=== PATIENT | female | born 1950 | race Caucasian/White ===

== ENCOUNTER → 2018-12-20 | Outpatient (CLI) | payer MEDICARE ==
[~2018-12-20] MED LIST: ALLOPURINOL100 MG PO; ANASTROZOLE1 MG PO; DILTIAZEM ER180 M1 PO; GABAPENTIN100 MG PO; INDOMETHACIN50 MG PO; LEVOTHYROXINE112 MCG PO; LOSARTAN POTASS25 MG PO; NORCO 7.5-3251 EACH PO; TOPAMAX25 MG PO; ZOLPIDEM TARTRA10 MG PO
--- NOTE | 2018-12-20 15:47 | Diagnostic Imaging Report ---
HISTORY : Abdominal pain COMPARISON : None COMMENT : Complete ultrasound examination of the abdomen was performed. The liver is normal in size and homogeneous in echo-texture without evidence of a focal mass. The gallbladder contains multiple shadowing echogenic gallstones. The gallbladder wall is thickened up to 7 mm. The biliary tract is within normal limits with the common bile duct measuring 3 mm in maximum diameter. The increase is secured by bowel gas. The spleen is normal in size and echo-texture measuring 10.7 cm. The right kidney measures 9.2 cm and the left kidney 10.6 cm in maximum size. There is no evidence of cysts, masses, stones or hydronephrosis. The portal vein measures to a maximum of 0.8 cm in diameter. There is no ascites or pleural effusion. The visualized inferior vena cava, hepatic veins and abdominal aorta are within normal limits. IMPRESSION : Cholelithiasis with gallbladder wall thickening. While the gallbladder is not distended and there is no pericholecystic fluid is findings can be seen in acute cholecystitis. Further evaluation can be performed with HIDA scan if clinically indicated. Signed by: Félix Thomason MD on 12/20/2018 3:43 PM
== END ==
LOC: US 14:13
PROVIDERS: ATTEND Family Medicine
DX: R10.11 Right upper quadrant pain (principal)
CPT/HCPCS: 76700

== ENCOUNTER 2018-12-22 07:33 | Observation (INO) | payer MEDICARE ==
[~2018-12-22] VITALS: Ht 162.6 cm; Wt 79.4 kg
--- OUTSIDE RECORDS SUMMARY | 2018-12-22 07:36 | XMS REPORT | Summary of Care ---
Author Author [facility] Organization [facility] Address Unknown Phone Unavailable Encounter JESSICA Bermeo(ISELA) [id number] Date(s): 12/03/15 - 12/08/15 [facility] [address] [place] [address]- [phone] Discharge Disposition: Home or Self Care Attending Physician: Dorian Stevens MD Admitting Physician: Dorian Stevens MD Vital Signs 1 2 3 Most recent to oldest [Reference Range]: 162.56 cm (12/03/15 7:59 PM) 162.56 cm (12/03/15 3:27 PM) Height 98.3 DegF (12/08/15 8:33 AM) 98.1 DegF (12/08/15 4:04 AM) 98.1 DegF (12/08/15 12:00 AM) Temperature Oral [96.4-99.1 DegF] 124/80 mmHg (12/08/15 8:33 AM) 120/69 mmHg (12/08/15 4:04 AM) 101/63 mmHg (12/08/15 12:00 AM) Blood Pressure [90-140/60-90 mmHg] 14 BRMIN (12/08/15 8:33 AM) 16 BRMIN (12/08/15 4:04 AM) 16 BRMIN (12/08/15 12:00 AM) Respiratory Rate [14-20 BRMIN] 71 bpm (12/08/15 8:33 AM) 59 bpm *LOW* (12/08/15 4:04 AM) 54 bpm *LOW* (12/08/15 12:00 AM) Peripheral Pulse Rate [60-100 bpm] 79.091 kg (12/03/15 7:59 PM) 75 kg (12/03/15 3:27 PM) Weight 29.93 m2 (12/03/15 7:59 PM) 28.38 m2 (12/03/15 3:27 PM) Body Mass Index Problem List Condition Effective Dates Status Health Status Informant Gout(Confirmed) Active Hypertension(Confirm Active ed) Hypothyroid(Confirme Active d) Allergies, Adverse Reactions, Alerts Substance Reaction Severity Status NKDA Active Medications Please bring pt's own atenolol/chlorthalidone to pharmacy Please bring pt's own atenolol/chlorthalidone to pharmacy, ATTN:RN, Drug form: MISC, Route: MISC, QSHIFT, 12/05/15 0:00:00 CDT, Duration: 30 day, Stop date: 16:00:00 CDT Start Date: 12/05/15 Stop Date: 12/05/15 Status: Discontinued acetaminophen 650 mg, 2 tab, Route: PO, Drug form: TAB, Q4H, Dosing Weight 79.091, kg, PRN Angel n 1-3/Temp > 100.4 F, Start date: 12/05/15 11:48:00 CDT, Duration: 30 day, Stop date: 01/04/16 11:47:00 CDT Notes: Do not exceed 4 gm/day. (Same as: Tylenol) Start Date: 12/05/15 Stop Date: 12/06/15 Status: Discontinued acetaminophen 650 mg, 2 tab, Route: PO, Drug form: TAB, Q4H, Dosing Weight 75, kg, PRN Pain 1- 3/Temp > 100.4 F, Start date: 12/03/15 19:48:00 CDT, Duration: 30 day, Stop date: 01/02/16 19:47:00 CDT Notes: Do not exceed 4 gm/day. (Same as: Tylenol) Start Date: 12/03/15 Stop Date: 12/03/15 Status: Discontinued acetaminophen 650 mg, 2 tab, Route: PO, Drug form: TAB, Q4H, Dosing Weight 75, kg, PRN Pain 1- 3/Temp > 100.4 F, Start date: 12/03/15 21:54:00 CDT, Duration: 30 day, Stop date: 01/02/16 21:53:00 CDT Notes: Do not exceed 4 gm/day. (Same as: Tylenol) Start Date: 12/03/15 Stop Date: 12/08/15 Status: Discontinued acetaminophen-codeine 300 mg-30 mg oral tablet 1 tab, Route: PO, Drug Form: TAB, Dosing Weight 79.091, kg, Q4H, PRN Pain Score 4-6, Start date: 12/06/15 10:53:00 CDT, Duration: 30 day, Stop date: 01/05/16 10 :52:00 CDT Notes: Do not exceed 4gm/day of acetaminophen. (Same as: Tylenol with Codeine # 3) Start Date: 12/06/15 Stop Date: 12/08/15 Status: Discontinued acetaminophen-codeine 300 mg-30 mg oral tablet 2 tab, Route: PO, Drug Form: TAB, Dosing Weight 79.091, kg, Q4H, PRN Pain Score 7-10, Start date: 12/06/15 10:53:00 CDT, Duration: 30 day, Stop date: 01/05/16 1 0:52:00 CDT Notes: Do not exceed 4gm/day of acetaminophen. (Same as: Tylenol with Codeine # 3) Start Date: 12/06/15 Stop Date: 12/08/15 Status: Discontinued acetaminophen-codeine 300 mg-30 mg oral tablet 1 tab, PO, Q4H, PRN Pain Score 4-6, X 14 day, # 84 tab, 0 Refill(s) Start Date: 12/08/15 Stop Date: 12/08/15 Status: Deleted acetaminophen-hydrocodone 325 mg-10 mg oral tablet 1 tab, Route: PO, Drug Form: TAB, Dosing Weight 79.091, kg, Q4H, PRN Pain Score 4-6, Start date: 12/05/15 11:48:00 CDT, Duration: 30 day, Stop date: 01/04/16 11 :47:00 CDT Notes: Do not exceed 4gm/day of acetaminophen. (Same as: [place] 325/10) Start Date: 12/05/15 Stop Date: 12/06/15 Status: Discontinued Al hydroxide/Mg hydroxide/simethicone 200 mg-200 mg-20 mg/5 mL oral suspension 30 ml, Route: PO, Drug Form: SUSP, Dosing Weight 79.091, kg, Q4H, PRN Indigestio n, Start date: 12/05/15 11:48:00 CDT, Duration: 30 day, Stop date: 01/04/16 11:4 7:00 CDT Notes: (aluminum hydroxide-magnesium hyd-simethicone [phone]/5ml 30 ml ud S US) Start Date: 12/05/15 Stop Date: 12/08/15 Status: Discontinued allopurinol 100 mg, 1 tab, Route: PO, Drug form: TAB, Daily, Dosing Weight 79.091, kg, Start date: 12/07/15 9:00:00 CDT, Duration: 30 day, Stop date: 01/05/16 9:00:00 CDT Notes: (Same as: Zyloprim) Start Date: 12/07/15 Stop Date: 12/08/15 Status: Discontinued allopurinol 100 mg oral tablet 100 mg=1 tab, PO, Daily, 0 Refill(s) Start Date: 12/06/15 Status: Ordered Ambien 5 mg, 1 tab, Route: PO, Drug form: TAB, Bedtime, PRN Sleep, Start date: 12/04/15 18:21:00 CDT, Duration: 30 day, Stop date: 01/03/16 18:20:00 CDT Notes: (Same As: Ambien) Start Date: 12/04/15 Stop Date: 12/08/15 Status: Discontinued Ancef 2 gm, 100 mL, Route: IVPB, Drug form: INJ, ONCE, Dosing Weight 79.091, kg, Start date: 12/05/15 13:51:00 CDT, Duration: 1 doses or times, Stop date: 12/05/15 13 :51:00 CDT, Surgical Prophylaxis Only; For patients < 120 kg Notes: Same as: Ancef Start Date: 12/05/15 Stop Date: 12/05/15 Status: Completed ANES fentaNYL 25 microgram, Route: IVP, Q5Min, Dosing Weight 79.091, kg, PRN Pain Score 4-6, S tart date: 12/05/15 12:02:00 CDT, Duration: 4 doses or times, Stop date: Limited # of times Start Date: 12/05/15 Stop Date: 12/05/15 Status: Completed ANES flumazenil 0.2 mg, Route: IVP, PRN, Dosing Weight 79.091, kg, PRN Benzodiazepine Reversal, Initial dose, Start date: 12/05/15 12:02:00 CDT, Duration: 30 day, Stop date: 12:01:00 CDT Start Date: 12/05/15 Stop Date: 12/05/15 Status: Discontinued ANES labetalol 10 mg, Route: IVP, Q5Min, Dosing Weight 79.091, kg, PRN Elevated BP, Start date: 12/05/15 12:02:00 CDT, Duration: 5 doses or times, Stop date: Limited # of times Start Date: 12/05/15 Stop Date: 12/05/15 Status: Discontinued ANES morphine Sulfate 2 mg, Route: IVP, Q5Min, Dosing Weight 79.091, kg, PRN Pain Score 4-6, Start niels e: 12/05/15 12:02:00 CDT, Duration: 5 doses or times, Stop date: Limited # of ti mes Start Date: 12/05/15 Stop Date: 12/05/15 Status: Discontinued ANES naloxone 0.4 mg, Route: IVP, Q2MIN, Dosing Weight 79.091, kg, PRN Narcotic Reversal, Star t date: 12/05/15 12:02:00 CDT, Duration: 8 doses or times, Stop date: Limited # of times Start Date: 12/05/15 Stop Date: 12/05/15 Status: Discontinued ANES ondansetron 4 mg, Route: IVP, ONCE, Dosing Weight 79.091, kg, PRN Nausea & Vomiting, Start date: 12/05/15 12:02:00 CDT Start Date: 12/05/15 Stop Date: 12/05/15 Status: Discontinued Atenol/Chlor Atenol/Chlor, 100-25mg Tab, Drug form: TAB, Route: PO, Daily, 12/05/15 9:00:00 C DT, Duration: 30 day, Stop date: 01/03/16 9:00:00 CDT Start Date: 12/05/15 Stop Date: 12/04/15 Status: Deleted atenolol-chlorthalidone 100 mg-25 mg oral tablet 1 tab, Route: PO, Drug Form: TAB, Daily, Start date: 12/05/15 13:30:00 CDT, Dura tion: 30 day, Stop date: 01/03/16 13:30:00 CDT Notes: Non-Formulary Drug (Same As: Atenolol-Chlorthal,Tenoretic 100-25) Start Date: 12/05/15 Stop Date: 12/08/15 Status: Discontinued benazepril 40 mg, PO, Daily, Take one tablet by mouth daily., 0 Refill(s) Start Date: 12/04/15 Status: Ordered benazepril 40 mg, Route: PO, Daily, Dosing Weight 79.091, kg, Start date: 12/05/15 9:00:00 CDT, Duration: 30 day, Stop date: 01/03/16 9:00:00 CDT Start Date: 12/05/15 Stop Date: 12/04/15 Status: Deleted Cardizem CD 120 mg, 1 cap, Route: PO, Drug form: ERCAP, Daily, Start date: 12/05/15 9:00:00 CDT, Duration: 30 day, Stop date: 01/03/16 9:00:00 CDT Notes: (Same as: Cardizem CD) Do Not Crush Before meals. Start Date: 12/05/15 Stop Date: 12/08/15 Status: Discontinued ceFAZolin (ANES) Route: IV, Drug form: INJ, ONCE, Stop date: 12/05/15 11:38:00 CDT Start Date: 12/05/15 Stop Date: 12/05/15 Status: Completed ceFAZolin (SCIP) 1 gm, 100 mL, Route: IVPB, Drug form: INJ, [id number], Dosing Weight 79.091, kg, Sta rt date: 12/05/15 19:00:00 CDT, Duration: 1 doses or times, Stop date: 12/05/15 19:00:00 CDT Start Date: 12/05/15 Stop Date: 12/05/15 Status: Completed clindamycin (SCIP) 600 mg, 50 mL, Route: IVPB, Drug form: INJ, Q8H, Dosing Weight 79.091, kg, Start date: 12/05/15 16:00:00 CDT, Duration: 1 doses or times, Stop date: 12/05/15 16 :00:00 CDT Start Date: 12/05/15 Stop Date: 12/05/15 Status: Completed colchicine 1.2 mg, 2 tab, Route: PO, Drug form: TAB, ONCE, Dosing Weight 79.091, kg, Start date: 12/06/15 10:51:00 CDT, Stop date: 12/06/15 10:51:00 CDT Start Date: 12/06/15 Stop Date: 12/06/15 Status: Completed colchicine 0.6 mg, Route: PO, Drug form: TAB, ONCE, Dosing Weight 79.091, kg, Start date: 0 12/06/15 11:51:00 CDT, Stop date: 12/06/15 11:51:00 CDT Start Date: 12/06/15 Stop Date: 12/06/15 Status: Canceled Diltiaz ER (XR) Diltiaz ER (XR), 120/24 CAP, Drug form: CAP, Route: PO, Daily, 12/05/15 9:00:00 CDT, Duration: 30 day, Stop date: 01/03/16 9:00:00 CDT Start Date: 12/05/15 Stop Date: 12/04/15 Status: Deleted diphenhydrAMINE 12.5 mg, 0.5 tab, Route: PO, Drug form: TAB, Q6H, Dosing Weight 79.091, kg, PRN Itching, Start date: 12/05/15 11:48:00 CDT, Duration: 30 day, Stop date: 6 11:47:00 CDT Start Date: 12/05/15 Stop Date: 12/08/15 Status: Discontinued docusate sodium 100 mg oral capsule 100 mg, 1 cap, Route: PO, Drug form: CAP, BID, Dosing Weight 79.091, kg, Start d ate: 12/05/15 17:00:00 CDT, Duration: 30 day, Stop date: 01/04/16 9:00:00 CDT Notes: (Same as: Colace) (Do Not Crush) Start Date: 12/05/15 Stop Date: 12/08/15 Status: Discontinued Dulcolax Laxative 5 mg, 1 tab, Route: PO, Drug form: ECTAB, Q24H, Dosing Weight 79.091, kg, PRN Co nstipation, Start date: 12/05/15 11:48:00 CDT, Duration: 30 day, Stop date: 07/16 11:47:00 CDT Notes: (Same As: Dulcolax, Correctol) (Do Not Crush) "Do Not Crush" Start Date: 12/05/15 Stop Date: 12/08/15 Status: Discontinued fentaNYL (ANES) Route: IV, Drug form: INJ, ONCE, Stop date: 12/05/15 11:43:00 CDT Start Date: 12/05/15 Stop Date: 12/05/15 Status: Completed glycopyrrolate (ANES) Route: IV, Drug form: INJ, ONCE, Stop date: 12/05/15 12:02:00 CDT Start Date: 12/05/15 Stop Date: 12/05/15 Status: Completed hydromorphone 0.3 mg, 0.3 mL, Route: IVP, Drug form: INJ, Q3H, Dosing Weight 79.091, kg, PRN P ain Score 4-6, Start date: 12/05/15 11:48:00 CDT, Duration: 30 day, Stop date: 11:47:00 CDT Start Date: 12/05/15 Stop Date: 12/06/15 Status: Discontinued indomethacin 50 mg oral capsule 50 mg=1 cap, PO, Q4H, Pt. Does not take medication as prescribed, she takes med icaion PRN., 0 Refill(s) Start Date: 12/06/15 Status: Ordered Lactated Ringers 1,000 mL 1,000 mL, Rate: 75 ml/hr, Infuse over: 13.3 hr, Route: IV, Dosing Weight 79.091 kg, Total Volume: 1,000, Start date: 12/05/15 11:48:00 CDT, Duration: 30 day, St op date: 01/04/16 11:47:00 CDT Start Date: 12/05/15 Stop Date: 12/07/15 Status: Discontinued levothyroxine 125 microgram, 1 tab, Route: PO, Drug form: TAB, [id number], Dosing Weight 79.091, k g, Start date: 12/05/15 6:30:00 CDT, Duration: 30 day, Stop date: 01/03/16 6:30: 00 CDT Notes: Take 1 hour before or 2 hours after meal; Enteral feeds may interefere wi th the absorption of this medication. (Same as:Levothroid) Start Date: 12/05/15 Stop Date: 12/08/15 Status: Discontinued levothyroxine 125 microgram, PO, Daily, take one tablet by mouth once daily in the morning on an empty stomach., 0 Refill(s) Start Date: 12/04/15 Status: Ordered levothyroxine Daily, 0 Refill(s) Start Date: 12/04/15 Stop Date: 12/08/15 Status: Discontinued lidocaine (ANES) Route: IV, Drug form: INJ, ONCE, Stop date: 12/05/15 11:18:00 CDT Start Date: 12/05/15 Stop Date: 12/05/15 Status: Completed Lovenox 40 mg, 0.4 mL, Route: SUB-Q, Drug form: INJ, [id number], Dosing Weight 79.091, kg, Start date: 12/06/15 9:00:00 CDT, Duration: 30 day, Stop date: 01/04/16 9:00:00 CDT Notes: (Same as: Lovenox) Start Date: 12/06/15 Stop Date: 12/08/15 Status: Discontinued LR 1000 mL INJ (ANES) Route: IV, Total Volume: 1,000, Start date: 12/05/15 10:44:00 CDT, Stop date: 11:44:00 CDT Start Date: 12/05/15 Stop Date: 12/05/15 Status: Completed midazolam (ANES) Route: IV, Drug form: SOLN, ONCE, Stop date: 12/05/15 11:18:00 CDT Start Date: 12/05/15 Stop Date: 12/05/15 Status: Completed morphine Sulfate 2 mg, 1 mL, Route: IVP, Drug form: INJ, ONCE, Dosing Weight 79.091, kg, Start da te: 12/03/15 22:30:00 CDT, Stop date: 12/03/15 22:30:00 CDT Notes: (Same as:MORPhine Sulfate) Start Date: 12/03/15 Stop Date: 12/03/15 Status: Completed morphine Sulfate 4 mg, Route: IVP, ONCE, Dosing Weight 75, kg, Priority: STAT, Start date: 17:51:00 CDT, Stop date: 12/03/15 17:51:00 CDT Start Date: 12/03/15 Stop Date: 12/03/15 Status: Completed morphine Sulfate 4 mg, 2 mL, Route: IVP, Drug form: INJ, ONCE, Dosing Weight 75, kg, Priority: ST AT, Start date: 12/03/15 15:47:00 CDT, Stop date: 12/03/15 15:47:00 CDT Notes: (Same as:MORPhine Sulfate) Start Date: 12/03/15 Stop Date: 12/03/15 Status: Completed morphine Sulfate 2 mg, 1 mL, Route: IVP, Drug form: INJ, Q4H, Dosing Weight 75, kg, PRN Pain Scor e 7-10, Start date: 12/03/15 19:48:00 CDT, Duration: 30 day, Stop date: 01/02/16 19:47:00 CDT Notes: (Same as:MORPhine Sulfate) Start Date: 12/03/15 Stop Date: 12/03/15 Status: Discontinued morphine Sulfate 2 mg, 1 mL, Route: IVP, Drug form: INJ, Q4H, Dosing Weight 75, kg, PRN Pain Scor e 7-10, Start date: 12/03/15 21:54:00 CDT, Duration: 30 day, Stop date: 01/02/16 21:53:00 CDT Notes: (Same as:MORPhine Sulfate) Start Date: 12/03/15 Stop Date: 12/08/15 Status: Discontinued neostigmine (ANES) Route: IV, Drug form: INJ, ONCE, Stop date: 12/05/15 12:02:00 CDT Start Date: 12/05/15 Stop Date: 12/05/15 Status: Completed Non-Formulary Home Medication Diltiaz ER (XR) 120/24 CAP Take one capsule by mouth once daily, Refill(s) 0 Start Date: 12/04/15 Status: Ordered Non-Formulary Home Medication Atenol/Chlor 100-25 mg Tab, take one tablet by mouth once daily., Refill(s) 0 Start Date: 12/04/15 Stop Date: 12/08/15 Status: Discontinued [place] 10/325 oral tablet See Instructions, PRN Pain Score 7-10, 1 tab PO Q4-6H as needed, # 60 tab, 0 Ref ill(s), given to patient Start Date: 12/08/15 Stop Date: 12/29/15 Status: Ordered NS (Bolus) IV 1,000 mL, 1,000 ml/hr, Infuse Over: 1 hr, Route: IV, 1,000, Drug form: INJ, ONCE , Priority: STAT, Dosing Weight 75 kg, Start date: 12/03/15 15:48:00 CDT, Durati on: 1 doses or times, Stop date: 12/03/15 15:48:00 CDT Start Date: 12/03/15 Stop Date: 12/03/15 Status: Completed ondansetron 4 mg, 2 mL, Route: IVP, Drug form: INJ, Q6H, Dosing Weight 75, kg, PRN Nausea & Vomiting, Start date: 12/03/15 21:54:00 CDT, Duration: 30 day, Stop date: 01/01 21:53:00 CDT Notes: (Same as: Miriam) MEDICATION WASTE Product Size: 4 mgProduct Was luigi: ___ mg Start Date: 12/03/15 Stop Date: 12/08/15 Status: Discontinued ondansetron 4 mg, 2 mL, Route: IVP, Drug form: INJ, Q6H, Dosing Weight 75, kg, PRN Nausea & Vomiting, Start date: 12/03/15 19:48:00 CDT, Duration: 30 day, Stop date: 01/01 19:47:00 CDT Notes: (Same as: Miriam) MEDICATION WASTE Product Size: 4 mgProduct Was luigi: ___ mg Start Date: 12/03/15 Stop Date: 12/03/15 Status: Discontinued ondansetron (ANES) Route: IV, Drug form: INJ, ONCE, Stop date: 12/05/15 11:28:00 CDT Start Date: 12/05/15 Stop Date: 12/05/15 Status: Completed pantoprazole 40 mg, 1 tab, Route: PO, Drug form: ECTAB, Daily, Dosing Weight 79.091, kg, Star t date: 12/06/15 9:00:00 CDT, Duration: 30 day, Stop date: 01/04/16 9:00:00 CDT Notes: Tablet should not be chewed or crushed.(Same as: Protonix) Start Date: 12/06/15 Stop Date: 12/08/15 Status: Discontinued Physical Therapy See Instructions, MISC, ONCALL, Evaluate and Treat 2-3 times per week for 4-6 we eks, # 1 ea, 0 Refill(s) Start Date: 12/07/15 Status: Ordered pneumococcal 13-valent vaccine 0.5 mL, Route: IM, Drug Form: INJ, Daily, Start date: 12/04/15 9:00:00 CDT, Dura tion: 1 doses or times, Stop date: 12/04/15 9:00:00 CDT Notes: Lightly roll vial (DO NOT SHAKE) before administration. (Same as: Prevna r 13) Start Date: 12/04/15 Stop Date: 12/04/15 Status: Completed Prinivil 40 mg, 2 tab, Route: PO, Drug form: TAB, Daily, Start date: 12/05/15 9:00:00 CDT , Duration: 30 day, Stop date: 01/03/16 9:00:00 CDT Notes: (Same as: Prinivil, Zestril) Start Date: 12/05/15 Stop Date: 12/08/15 Status: Discontinued propofol (ANES) Route: IV, Drug form: INJ, ONCE, Stop date: 12/05/15 11:18:00 CDT Start Date: 12/05/15 Stop Date: 12/05/15 Status: Completed rocuronium (ANES) Route: IV, Drug form: INJ, ONCE, Stop date: 12/05/15 11:43:00 CDT Start Date: 12/05/15 Stop Date: 12/05/15 Status: Completed Saline Flush 0.9% 10 ml, Route: IVP, Drug Form: INJ, Dosing Weight 75, kg, PRN, PRN Line Flush, St art date: 12/03/15 19:48:00 CDT, Duration: 30 day, Stop date: 01/02/16 19:47:00 CDT Notes: (Same as: BD Posiflush) Start Date: 12/03/15 Stop Date: 12/03/15 Status: Discontinued Saline Flush 0.9% 10 ml, Route: IVP, Drug Form: INJ, Dosing Weight 75, kg, PRN, PRN Line Flush, St art date: 12/03/15 21:55:00 CDT, Duration: 30 day, Stop date: 01/02/16 21:54:00 CDT Notes: (Same as: BD Posiflush) Start Date: 12/03/15 Stop Date: 12/08/15 Status: Discontinued sodium chloride 0.9% 1000 ml INJ 1,000 mL 1,000 mL, Rate: 100 ml/hr, Infuse over: 10 hr, Route: IV, Dosing Weight 75 kg, T otal Volume: 1,000, Start date: 12/03/15 19:48:00 CDT, Duration: 30 day, Stop da te: 01/02/16 19:47:00 CDT Start Date: 12/03/15 Stop Date: 12/03/15 Status: Discontinued sodium chloride 0.9% 1000 ml INJ 1,000 mL 1,000 mL, Rate: 100 ml/hr, Infuse over: 10 hr, Route: IV, Dosing Weight 79.091 k g, Total Volume: 1,000, Start date: 12/03/15 21:54:00 CDT, Duration: 30 day, Sto p date: 01/02/16 21:53:00 CDT Start Date: 12/03/15 Stop Date: 12/07/15 Status: Discontinued topiramate 25 mg, 1 tab, Route: PO, Drug form: TAB, BID, Dosing Weight 79.091, kg, Start da te: 12/05/15 9:00:00 CDT, Duration: 30 day, Stop date: 01/03/16 17:00:00 CDT Notes: (Same As: Topamax)"Do Not Crush" Start Date: 12/05/15 Stop Date: 12/08/15 Status: Discontinued topiramate PO, 0 Refill(s) Start Date: 12/04/15 Stop Date: 12/08/15 Status: Discontinued topiramate 25 mg oral tablet 25 mg=1 tab, PO, BID, 0 Refill(s) Start Date: 12/04/15 Status: Ordered Zofran 4 mg, 2 mL, Route: IVP, Drug form: INJ, ONCE, Dosing Weight 75, kg, Priority: ST AT, Start date: 12/03/15 15:47:00 CDT, Stop date: 12/03/15 15:47:00 CDT Notes: (Same as: Zofran) MEDICATION WASTE Product Size: 4 mgProduct Was luigi: ___ mg Start Date: 12/03/15 Stop Date: 12/03/15 Status: Completed zolpidem 10 mg, Route: PO, Drug form: TAB, Bedtime, Dosing Weight 79.091, kg, PRN Sleep, Start date: 12/04/15 17:52:00 CDT, Duration: 30 day, Stop date: 01/03/16 17:51:0 0 CDT Start Date: 12/04/15 Stop Date: 12/04/15 Status: Deleted zolpidem 10 mg oral tablet 10 mg=1 tab, PO, Bedtime, PRN as needed for sleep, 0 Refill(s) Start Date: 12/04/15 Status: Ordered Results BLOOD BANK RESULTS 1 2 3 Most recent to oldest [Reference Range]: A POS *Unknown* (12/05/15 1:43 PM) ABO/Rh Negative (12/05/15 1:43 PM) Antibody Scrn ELECTROLYTES 1 2 3 Most recent to oldest [Reference Range]: 138 mEq/L (12/08/15 3:15 AM) 138 mEq/L (12/07/15 5:16 AM) 135 mEq/L (12/06/15 6:19 AM) Sodium Lvl [135-145 mEq/L] 3.6 mEq/L (12/08/15 3:15 AM) 3.3 mEq/L *LOW* (12/07/15 5:16 AM) 3.6 mEq/L (12/06/15 6:19 AM) Potassium Lvl [3.5-5.1 mEq/L] 101 mEq/L (12/08/15 3:15 AM) 101 mEq/L (12/07/15 5:16 AM) 101 mEq/L (12/06/15 6:19 AM) Chloride Lvl [95-109 mEq/L] 29 mEq/L (12/08/15 3:15 AM) 28 mEq/L (12/07/15:16 AM) 25 mEq/L (12/06/15 6:19 AM) CO2 [24-32 mEq/L] 11.6 mEq/L (12/08/15 3:15 AM) 12.3 mEq/L (12/07/15:16 AM) 12.6 mEq/L (12/06/15:19 AM) AGAP [10.0-20.0 mEq/L] CHEM PANEL 1 2 3 Most recent to oldest [Reference Range]: 1.06 mg/dL (12/08/15 3:15 AM) 1.10 mg/dL (12/07/15:16 AM) 1.02 mg/dL (12/06/15:19 AM) Creatinine Lvl [0.50-1.40 mg/dL] 55 mL/min/1.73m2 1 *NA* (12/08/15 3:15 AM) 53 mL/min/1.73m2 2 *NA* (12/07/15:16 AM) 58 mL/min/1.73m2 3 *NA* (12/06/15:19 AM) eGFR 16 mg/dL (12/08/15 3:15 AM) 15 mg/dL (12/07/15:16 AM) 12 mg/dL (12/06/15 6:19 AM) BUN [7-22 mg/dL] 15 (12/08/15 3:15 AM) 14 (12/07/15:16 AM) 12 (12/06/15 6:19 AM) B/C Ratio [6-25] 91 mg/dL (12/08/15 3:15 AM) 99 mg/dL (12/07/15:16 AM) 97 mg/dL (12/06/15 6:19 AM) Glucose Lvl [70-99 mg/dL] 5.6 mg/dL (12/06/15 6:19 AM) Uric Acid [2.5-7.0 mg/dL] 6.4 g/dL (12/08/15 3:15 AM) 6.0 g/dL *LOW* (12/07/15 5:16 AM) 6.2 g/dL *LOW* (12/06/15 6:19 AM) Total Protein [6.4-8.4 g/dL] 2.4 g/dL *LOW* (12/08/15 3:15 AM) 2.4 g/dL *LOW* (12/07/15:16 AM) 2.6 g/dL *LOW* (12/06/15 6:19 AM) Albumin Lvl [3.5-5.0 g/dL] 4.0 g/dL (12/08/15 3:15 AM) 3.6 g/dL (12/07/15 5:16 AM) 3.6 g/dL (12/06/15 6:19 AM) Globulin [2.7-4.2 g/dL] 0.6 *LOW* (12/08/15 3:15 AM) 0.7 (12/07/15 5:16 AM) 0.7 (12/06/15 6:19 AM) A/G Ratio [0.7-1.6] 8.1 mg/dL *LOW* (12/08/15 3:15 AM) 8.0 mg/dL *LOW* (12/07/15 5:16 AM) 8.1 mg/dL *LOW* (12/06/15 6:19 AM) Calcium Lvl [8.5-10.5 mg/dL] 15 unit/L (12/08/15 3:15 AM) 13 unit/L (12/07/15 5:16 AM) 13 unit/L (12/06/15 6:19 AM) ALT [0-65 unit/L] 14 unit/L (12/08/15 3:15 AM) 17 unit/L (12/07/15 5:16 AM) 15 unit/L (12/06/15 6:19 AM) AST [0-37 unit/L] 44 unit/L (12/08/15 3:15 AM) 42 unit/L (12/07/15 5:16 AM) 43 unit/L (12/06/15 6:19 AM) Alk Phos [39-136 unit/L] 0.7 mg/dL (12/08/15 3:15 AM) 0.9 mg/dL (12/07/15 5:16 AM) 0.6 mg/dL (12/06/15 6:19 AM) Bili Total [0.2-1.3 mg/dL] 1Result Comment: The eGFR is calculated using the CKD-EPI formula. In most young, healthy individuals the eGFR will be >90 mL/min/1.73m2. The eGFR declines with age. An eGFR of 60-89 may be normal in some populations, particularly the elderly, for whom the CKD-EPI formula has not been extensively validated. Use of the eGFR is not recommended in the following populations: Individuals with unstable creatinine concentrations, including patients and those with serious co-morbid conditions. Patients with extremes in muscle mass or diet. The data above are obtained from the [employer] ( [employer]) which additionally recommends that when the eGFR is used in patients with extremes of body mass index for purposes of drug dosing, the eGFR should be mul tiplied by the estimated BMI. 2Result Comment: The eGFR is calculated using the CKD-EPI formula. In most young, healthy individuals the eGFR will be >90 mL/min/1.73m2. The eGFR declines with age. An eGFR of 60-89 may be normal in some populations, particularly the elderly, for whom the CKD-EPI formula has not been extensively validated. Use of the eGFR is not recommended in the following populations: Individuals with unstable creatinine concentrations, including patients and those with serious co-morbid conditions. Patients with extremes in muscle mass or diet. The data above are obtained from the [employer] ( [employer]) which additionally recommends that when the eGFR is used in patients with extremes of body mass index for purposes of drug dosing, the eGFR should be mul tiplied by the estimated BMI. 3Result Comment: The eGFR is calculated using the CKD-EPI formula. In most young, healthy individuals the eGFR will be >90 mL/min/1.73m2. The eGFR declines with age. An eGFR of 60-89 may be normal in some populations, particularly the elderly, for whom the CKD-EPI formula has not been extensively validated. Use of the eGFR is not recommended in the following populations: Individuals with unstable creatinine concentrations, including patients and those with serious co-morbid conditions. Patients with extremes in muscle mass or diet. The data above are obtained from the [employer] ( [employer]) which additionally recommends that when the eGFR is used in patients with extremes of body mass index for purposes of drug dosing, the eGFR should be mul tiplied by the estimated BMI. HEMATOLOGY 1 2 3 Most recent to oldest [Reference Range]: 6.3 K/CMM (12/08/15 3:15 AM) 7.0 K/CMM (12/07/15 5:16 AM) 8.6 K/CMM (12/06/15:19 AM) WBC [3.7-10.4 K/CMM] 3.61 M/CMM *LOW* (12/08/15 3:15 AM) 3.45 M/CMM *LOW* (12/07/15:16 AM) 3.82 M/CMM *LOW* (12/06/15:19 AM) RBC [4.20-5.40 M/CMM] 10.5 g/dL *LOW* (12/08/15 3:15 AM) 10.1 g/dL *LOW* (12/07/15 5:16 AM) 11.2 g/dL *LOW* (12/06/15 6:19 AM) Hgb [12.0-16.0 g/dL] 30.9 % *LOW* (12/08/15 3:15 AM) 29.4 % *LOW* (12/07/15:16 AM) 32.7 % *LOW* (12/06/15:19 AM) Hct [36.0-48.0 %] 85.5 fL (12/08/15 3:15 AM) 85.2 fL (12/07/15:16 AM) 85.6 fL (12/06/15:19 AM) MCV [80.0-98.0 fL] 29.2 pg (12/08/15 3:15 AM) 29.3 pg (12/07/15 5:16 AM) 29.2 pg (12/06/15 6:19 AM) MCH [27.0-31.0 pg] 34.2 g/dL (12/08/15 3:15 AM) 34.4 g/dL (12/07/15 5:16 AM) 34.1 g/dL (12/06/15:19 AM) MCHC [32.0-36.0 g/dL] 12.7 % (12/08/15:15 AM) 12.6 % (12/07/15:16 AM) 13.0 % (12/06/15:19 AM) RDW [11.5-14.5 %] 150 K/CMM (12/08/15:15 AM) 118 K/CMM *LOW* (12/07/15:16 AM) 127 K/CMM *LOW* (12/06/15:19 AM) Platelet [133-450 K/CMM] 8.9 fL (12/08/15:15 AM) 9.1 fL (12/07/15:16 AM) 8.8 fL (12/06/15:19 AM) MPV [7.4-10.4 fL] 60.3 % (12/08/15:15 AM) 68.2 % (12/07/15:16 AM) 68.2 % (12/06/15:19 AM) Segs [45.0-75.0 %] 24.3 % (12/08/15 3:15 AM) 17.9 % *LOW* (12/07/15:16 AM) 21.0 % (12/06/15:19 AM) Lymphocytes [20.0-40.0 %] 9.1 % (12/08/15:15 AM) 9.3 % (12/07/15:16 AM) 6.5 % (12/06/15:19 AM) Monocytes [2.0-12.0 %] 5.5 % *HI* (12/08/15 3:15 AM) 4.0 % (12/07/15:16 AM) 3.2 % (12/06/15:19 AM) Eosinophils [0.0-4.0 %] 0.8 % (12/08/15 3:15 AM) 0.6 % (12/07/15:16 AM) 1.1 % *HI* (12/06/15:19 AM) Basophils [0.0-1.0 %] 3.8 K/CMM (12/08/15 3:15 AM) 4.8 K/CMM (12/07/15 5:16 AM) 5.8 K/CMM (12/06/15 6:19 AM) Segs-Bands # [1.5-8.1 K/CMM] 1.5 K/CMM (12/08/15 3:15 AM) 1.3 K/CMM (12/07/15 5:16 AM) 1.8 K/CMM (12/06/15 6:19 AM) Lymphocytes # [1.0-5.5 K/CMM] 0.6 K/CMM (12/08/15 3:15 AM) 0.7 K/CMM (12/07/15 5:16 AM) 0.6 K/CMM (12/06/15 6:19 AM) Monocytes # [0.0-0.8 K/CMM] 0.3 K/CMM (12/08/15 3:15 AM) 0.3 K/CMM (12/07/15 5:16 AM) 0.3 K/CMM (12/06/15 6:19 AM) Eosinophils # [0.0-0.5 K/CMM] 0.1 K/CMM (12/08/15 3:15 AM) 0.1 K/CMM (12/06/15 6:19 AM) 0.1 K/CMM (12/03/15 4:27 PM) Basophils # [0.0-0.2 K/CMM] 13.4 seconds (12/03/15 7:11 PM) PT [12.0-14.7 seconds] 0.99 (12/03/15 7:11 PM) INR [0.85-1.17] 27.8 seconds (12/03/15 7:11 PM) PTT [22.9-35.8 seconds] Immunizations Not Given Vaccine Date Status Refusal Reason pneumococcal 13-valent vaccine 12/04/15 Not Given Parent Or Guardian Refuses Procedures No data available for this section Social History Social History Type Response Smoking Status Unknown if ever smoked; Exposure to Tobacco Smoke None; Cigarette Smoking Last 365 Days No; Reg Smoking Cessation Counseling No Assessment and Plan Extracted from: Title: Clinical Document Author: oDrian Stevens MD Date: 12/08/15 Discharge Summary Date of Admission: 12/03/2015 Date of Discharge: 12/08/2015 Admitting Diagnosis:Fracture Left Hip Final Diagnosis: Comment: Diagnosis: Closed fracture of left hip Comment: Diagnosis: Gout Comment: Diagnosis: Hypertension Comment: Diagnosis: Hypothyroid Comment: Ordered: Discharge Patient -Routine; 12/08/15 9:07:00 CDT, Home, Diet Low Sodium Diet, Activity No restrictions, Notify Physician Pain, Continue IV acccess Discontinue, Primary Care Physician follow up, Follow up When 1 Week, NOW Procedure done during the hospital stay: OP PATIENT NAME: SANDOVAL TOLBERT DATE OF OPERATION/PROCEDURE: 12/05/2015 *_*_* PREOPERATIVE DIAGNOSIS: Left hip femoral neck fracture. POSTOPERATIVE DIAGNOSES: Left hip femoral neck fracture. PROCEDURE PERFORMED: Closed reduction and pinning of left hip femoral neck fracture using Sims 6.5-mm cannulated screws. SURGEON: Dc Glaser M.D. ANESTHESIA: General endotracheal anesthetic. INTRAVENOUS FLUIDS: 700 mL lactated Ringer's. ESTIMATED BLOOD LOSS: 100 mL Hospital Course: 65 y.o. woman with h/o HTN, Hyperthyroidism, Migraine DEVRIES, Gout, and Stage II CKD presents to the ED via EMS c/o left hip pain onset today after a fall. Patient states that she slipped and fell onto her tiled floor after her dog tracked water on the floor inside her home. Patient denies LOC or head trauma but states that she has a 5/10 left hip pain and that she has difficulty bearing weight. Patient denies taking any blood thinners but states that she has not yet taken her daily medication. Plain films of the affected left hip revealed left femoral, slightly displaced neck fracture. Pt admitted to medicine service with orthopedic consultation. LABORATORY DATA: Labs (Last four charted values) WBC 9.2(DEC 02) Hgb 13.1(DEC 02) Hct 38.7(DEC 02) Plt 155(DEC 02) Na 139(DEC 02) K 3.7(DEC 02) CO2 24(DEC 02) Cl 107(DEC 02) Cr 1.19(DEC 02) BUN H 29(DEC 02) Glucose Random 94(DEC 02) Ca 8.8(DEC 02) PT 13.4(DEC 02) INR 0.99(DEC 02) PTT 27.8(DEC 02) Radiology: Femur series DX CLINICAL HISTORY: Pain from a fall FINDINGS/IMPRESSION: AP and lateral views of the left femur reveal minimally displaced displaced femoral neck fracture with mild override of the fracture fragments. No significant degenerative change is present. Mild generalized osteopenia. Pelvis AP DX CLINICAL HISTORY: Fracture FINDINGS/IMPRESSION: Single AP view of the pelvis is submitted for review. Minimally displaced fracture of the left femoral neck is noted. Mild generalized osteopenia. Patient was admitted in the hospital. Orthopedics surgery was asked to see. Patient had open reduction internal fixation as described above done by Dr. Glaser for orthopedic surgery. Physical therapy occupational therapy were started. A cardiac consult was asked by Dr. Barnard. Patient wants to go home. Patient was advised to be discharged with outpatient rehabilitation. Patient agreed for the plan. Patient was discharged today on December 08, 2015. For Detail Hospital course, As follow: 1. Fracture of Left Hip: Seen by Ortho and schedule for surgery today. 12/06/2015: S/P Surgery done on 12/05/2015. 12/07/2015: Doing better 12/08/2015: Doing better and she will be DC with home OP Rehab 2. Hypertension: On medication and stable at this time. 3. Hypothyroid: On replacement. 4. Gout: Stable at this time. 12/06/2015: She is on allopurinol and continue with the same. 12/08/2015: We will discharge her today. Vital Signs (last 24 hrs) Last Charted Temp Oral98.6 DegF (DEC 07 12:) Heart Rate [id number] bpm (DEC 07 12:) Resp Rate 14 BRMIN (DEC 07 12:) KDC929 mmHg (DEC 07 12:) DBP68 mmHg (DEC 07 12:) VxD067 % (DEC 07 08:33) Labs (Last four charted values) WBC 6.3(DEC 07)7.0(DEC 06)8.6(DEC 05)9.2(DEC 02) Hgb L 10.5(DEC 07)L 10.1(DEC 06)L 11.2(DEC 05)13.1(DEC 02) Hct L 30.9(DEC 07)L 29.4(DEC 06)L 32.7(DEC 05)38.7(DEC 02) Plt 150(DEC 07)L 118(DEC 06)L 127(DEC 05)155(DEC 02) Na 138(DEC 07)138(DEC 06)135(DEC 05)139(DEC 02) K 3.6(DEC 07)L 3.3(DEC 06)3.6(DEC 05)3.7(DEC 02) CO2 29(DEC 07)28(DEC 06)25(DEC 05)24(DEC 02) Cl 101(DEC 07)101(DEC 06)101(DEC 05)107(DEC 02) Cr 1.06(DEC 07)1.10(DEC 06)1.02(DEC 05)1.19(DEC 02) BUN 16(DEC 07)15(DEC 06)12(DEC 05)H 29(DEC 02) Glucose Random 91(DEC 07)99(DEC 06)97(DEC 05)94(DEC 02) Ca L 8.1(DEC 07)L 8.0(DEC 06)L 8.1(DEC 05)8.8(DEC 02) PT 13.4(DEC 02) INR 0.99(DEC 02) PTT 27.8(DEC 02) Diet: Low Sodium Activity: As tolerated Follow Up: Primary MD in one week Medication: As per reconciliation Total time spent: 40 minutes Extracted from: Title: Clinical Document Author: Brandon Whitaker MD Date: 12/08/15 PM&R PROGRESS NOTE CHIEF COMPLAINT IDENTIFICATION: A 65-year-old lady being seen for ongoing rehabilitation needs after having an acute traumatic left femoral neck fracture status post closed reduction and pinning. INTERVAL EVENTS AND SUBJECTIVE: All interval events reviewed. No new fevers, chills, nausea, vomiting, chest pains, palpitations, headaches, or dizziness. Pain is very well controlled. Using bedside commode. No BM yet. PHYSICAL EXAMINATION: Vitals and Temp: VitalsTmp(F)[id number] 12/07 08:[id number]--- 12/07 04:[id number]--- 12/07 00:[id number]--- 12/06 22:09 1295 21% 12/06 20:[id number]--- 24 Hr Tmax: 98.4F (36.89c) at 12/06 16:00Vital Signs are the last 5 in the past 48 hours. GENERAL: No apparent distress, seen working with the therapies. PSYCH: Alert, oriented, appropriate, very pleasant. HEENT: Pupils equal, round, reactive to light. Extraocular muscles intact. Moist mucous membranes. CARDIOVASCULAR: 2+ bilateral upper extremity, pulses regular rate and rhythm, all extremities warm and well-perfused. PULMONARY: Respirations unlabored, no dyspnea. ABDOMEN: Doughy, nontender, nondistended. GENITOURINARY: No Jaramillo. SKIN: No new breakdown. NEUROMUSCULOSKELETAL: Cranial nerves II-XII are intact. She is ambulating with the aid of a rolling walker inside the room some antalgic gait towards that left leg. She is overall tolerating well at over 150 feet, needing distant supervision to slight contact guard assistance. LABORATORY DATA: Labs (Last four charted values) WBC 6.3(DEC 07)7.0(DEC 06)8.6(DEC 05)9.2(DEC 02) Hgb L 10.5(DEC 07)L 10.1(DEC 06)L 11.2(DEC 05)13.1(DEC 02) Hct L 30.9(DEC 07)L 29.4(DEC 06)L 32.7(DEC 05)38.7(DEC 02) Plt 150(DEC 07)L 118(DEC 06)L 127(DEC 05)155(DEC 02) Na 138(DEC 07)138(DEC 06)135(DEC 05)139(DEC 02) K 3.6(DEC 07)L 3.3(DEC 06)3.6(DEC 05)3.7(DEC 02) CO2 29(DEC 07)28(DEC 06)25(DEC 05)24(DEC 02) Cl 101(DEC 07)101(DEC 06)101(DEC 05)107(DEC 02) Cr 1.06(DEC 07)1.10(DEC 06)1.02(DEC 05)1.19(DEC 02) BUN 16(DEC 07)15(DEC 06)12(DEC 05)H 29(DEC 02) Glucose Random 91(DEC 07)99(SEP 06)97(SEP 05)94(DEC 02) Ca L 8.1(DEC 07)L 8.0(DEC 06)L 8.1(DEC 05)8.8(DEC 02) PT 13.4(DEC 02) INR 0.99(DEC 02) PTT 27.8(DEC 02) DIAGNOSTIC IMAGING STUDIES: No new imaging ASSESSMENT AND PLAN: A very pleasant 65-year-old lady with: 1. Minimally displaced left femoral neck fracture, now status post closed reduction and pinning: Dr. Glaser following. With 50% weightbearing. No range of motion precautions. Continue postoperative medical risk reduction. Continue rehabilitation therapies. Continue Lovenox. 2. History of gout with podagra: Resolved. 3. Acute postoperative left hip pain: Well controlled. Continue ice, positioning, range of motion, and stretching. Continue remobilization therapies. 4. Acute postoperative anemia: Minimal at this point in time. Continue nutrition and fluid. 5. Rehabilitation for deficits in mobility, ADLs, IADLs, weakness, incoordination and imbalance secondary to the above: -All interval therapy notes reviewed. - pt trans sit-stand with sba then amb x 90 feet slowly PWB le le with sba -up in bed eating breakfast upon therapist's arrival. Pt supine to EOB with Mod A. Pt reported that she needed to use the BSC. Pt sit>stand with RW and Min A. Pt transferred to BSC with Min A and completed toieleting with SBA. Pt trans ferred to chair with Min A. Pt demonstrated good understanding of partial weight bearing on LLE -Continue PT and OT. -Ready to return home with family assistance. -Eqpt recs: FWW and bedside commode. -Outpatient PT (save some sessions for when weight bearing progressed.)
--- OUTSIDE RECORDS SUMMARY | 2018-12-22 07:36 | XMS REPORT | Continuity of Care Document ---
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 Role Phone [employer] Unavailable Unavailable Problems Problem Status Onset Date Classification Date Reported Comments Source FALL/HIP PAIN Active 12/03/2015 [facility] L FEMORAL NECK FRACTURE Active 12/03/2015 [facility] Gout (disorder) Active [facility] Hypertensive disorder, systemic arterial (disorder) Active Problem 01/10/2016 [facility] Hypothyroidism (disorder) Active Problem [facility]10[facility] UNSPECIFIED FRACTURE OF BASE OF SKULL, S Active [facility] HIP FX Active [facility] DIFFICULTY IN WALKING, NOT ELSEWHERE CLA [facility] FRACTURE OF UNSP PART OF NECK OF LEFT FE Active [facility] [place] Medications Medication Details Route Status Patient Instructions Ordering Provider Order Date Source Acetaminophen 325 MG / Hydrocodone Bitartrate 10 MG Oral Tablet [[place] 10] See Instructions, PRN Pain Score 7-10, 1 tab PO Q4-6H as needed, # 60 tab, 0 Refill(s), given to patient Active 12/08/2015 [facility] Acetaminophen 300 MG / Codeine Phosphate 30 MG Oral Tablet 1 tab, PO, Q4H, PRN Pain Score 4-6, X 14 day, # 84 tab, 0 Refill(s) Inactive 12/08/2015 [facility] Physical Therapy See Instructions, MISC, ONCALL, Evaluate and Treat 2-3 times per week for 4-6 weeks, # 1 ea, 0 Refill(s) Active 12/07/2015 [facility] Allopurinol 100 mg, 1 tab, Route: PO, Drug form: TAB, Daily, Dosing Weight 79.091, kg, Start date: 12/07/15 9:00:00 CDT, Duration: 30 day, Stop date: 01/05/16 9:00:00 CDTNotes: (Same as: Zyloprim) No Longer Active 12/07/2015 [facility] Colchicine 0.6 mg, Route: PO, Drug form: TAB, ONCE, Dosing Weight 79.091, kg, Start date: 12/06/15 11:51:00 CDT, Stop date: 12/06/15 11:51:00 CDT Inactive 12/06/2015 [facility] Acetaminophen 300 MG / Codeine Phosphate 30 MG Oral Tablet 1 tab, Route: PO, Drug Form: TAB, Dosing Weight 79.091, kg, Q4H, PRN Pain Score 4-6, Start date: 12/06/15 10:53:00 CDT, Duration: 30 day, Stop date: 01/05/16 10:52:00 CDTNotes: Do not exceed 4gm/day of acetaminophen. (Same as: Tylenol with Codeine # 3) No Longer Active 12/06/2015 [facility] Colchicine 1.2 mg, 2 tab, Route: PO, Drug form: TAB, ONCE, Dosing Weight 79.091, kg, Start date: 12/06/15 10:51:00 CDT, Stop date: 12/06/15 10:51:00 CDT Inactive 12/06/2015 [facility] pantoprazole 40 mg, 1 tab, Route: PO, Drug form: ECTAB, Daily, Dosing Weight 79.091, kg, Start date: 12/06/15 9:00:00 CDT, Duration: 30 day, Stop date: 01/04/16 9:00:00 CDTNotes: Tablet should not be chewed or cr ushed. (Same as: Protonix) No Longer Active 12/06/2015 [facility] Lovenox 40 mg, 0.4 mL, Route: SUB-Q, Drug form: INJ, sacrH34G, Dosing Weight 79.091, kg, Start date: 12/06/15 9:00:00 CDT, Duration: 30 day, Stop date: 01/04/16 9:00:00 CDTNotes: (Same as: Lovenox) No Longer Active 12/06/2015 [facility] indomethacin 50 mg oral capsule 50 mg=1 cap, PO, Q4H, Pt. Does not take medication as prescribed, she takes medicaion PRN., 0 Refill(s) Active 12/06/2015 [facility] allopurinol 100 mg oral tablet 100 mg=1 tab, PO, Daily, 0 Refill(s) Active 12/06/2015 [facility] ceFAZolin (SCIP) 1 gm, 100 mL, Route: IVPB, Drug form: INJ, ABXQ8H, Dosing Weight 79.091, kg, Start date: 12/05/15 19:00:00 CDT, Duration: 1 doses or times, Stop date: 12/05/15 19:00:00 CDT Inactive 12/06/2015 [facility] Docusate Sodium 100 MG Oral Capsule 100 mg, 1 cap, Route: PO, Drug form: CAP, BID, Dosing Weight 79.091, kg, Start date: 12/05/15 17:00:00 CDT, Duration: 30 day, Stop date: 01/04/16 9:00:00 CDTNotes: (Same as: Colace) (Do Not Crush) No Longer Active 12/05/2015 [facility] clindamycin (SCIP) 600 mg, 50 mL, Route: IVPB, Drug form: INJ, Q8H, Dosing Weight 79.091, kg, Start date: 12/05/15 16:00:00 CDT, Duration: 1 doses or times, Stop date: 12/05/15 16:00:00 CDT Inactive 12/05/2015 [facility] Ancef 2 gm, 100 mL, Route: IVPB, Drug form: INJ, ONCE, Dosing Weight 79.091, kg, Start date: 12/05/15 13:51:00 CDT, Duration: 1 doses or times, Stop date: 12/05/15 13:51:00 CDT, Surgical Prophylaxis Only; For patients Notes: Same as: Ancef Inactive 12/05/2015 [facility] atenolol-chlorthalidone 100 mg-25 mg oral tablet 1 tab, Route: PO, Drug Form: TAB, Daily, Start date: 12/05/15 13:30:00 CDT, Duration: 30 day, Stop date: 01/03/16 13:30:00 CDTNotes: Non-Formulary Drug (Same As: Atenolol-Chlorthal,Tenoretic 100-25) No Longer Active 12/05/2015 [facility] neostigmine (ANES) Route: IV, Drug form: INJ, ONCE, Stop date: 12/05/15 12:02:00 CDT Inactive 12/05/2015 [facility] glycopyrrolate (ANES) Route: IV, Drug form: INJ, ONCE, Stop date: 12/05/15 12:02:00 CDT Inactive 12/05/2015 [facility] Labetalol 10 mg, Route: IVP, Q5Min, Dosing Weight 79.091, kg, PRN Elevated BP, Start date: 12/05/15 12:02:00 CDT, Duration: 5 doses or times, Stop date: Limited # of times Inactive 12/05/2015 [facility] Fentanyl 25 microgram, Route: IVP, Q5Min, Dosing Weight 79.091, kg, PRN Pain Score 4-6, Start date: 12/05/15 12:02:00 CDT, Duration: 4 doses or times, Stop date: Limited # of times Inactive 12/05/2015 [facility] Morphine 2 mg, Route: IVP, Q5Min, Dosing Weight 79.091, kg, PRN Pain Score 4-6, Start date: 12/05/15 12:02:00 CDT, Duration: 5 doses or times, Stop date: Limited # of times Inactive 12/05/2015 [facility] Flumazenil 0.2 mg, Route: IVP, PRN, Dosing Weight 79.091, kg, PRN Benzodiazepine Reversal, Initial dose, Start date: 12/05/15 12:02:00 CDT, Duration: 30 day, Stop date: 01/04/16 12:01:00 CDT Inactive 12/05/2015 [facility] Naloxone 0.4 mg, Route: IVP, Q2MIN, Dosing Weight 79.091, kg, PRN Narcotic Reversal, Start date: 12/05/15 12:02:00 CDT, Duration: 8 doses or times, Stop date: Limited # of times Inactive 12/05/2015 [facility] Ondansetron 4 mg, Route: IVP, ONCE, Dosing Weight 79.091, kg, PRN Nausea & Vomiting, Start date: 12/05/15 12:02:00 CDT Inactive 12/05/2015 [facility] Diphenhydramine 12.5 mg, 0.5 tab, Route: PO, Drug form: TAB, Q6H, Dosing Weight 79.091, kg, PRN Itching, Start date: 12/05/15 11:48:00 CDT, Duration: 30 day, Stop date: 01/04/16 11:47:00 CDT No Longer Active 12/05/2015 [facility] Dulcolax Laxative 5 mg, 1 tab, Route: PO, Drug form: ECTAB, Q24H, Dosing Weight 79.091, kg, PRN Constipation, Start date: 12/05/15 11:48:00 CDT, Duration: 30 day, Stop date: 01/04/16 11:47:00 CDTNotes: (Same As: Dulcolax , Correctol) (Do Not Crush) "Do Not Crush" No Longer Active 12/05/2015 [facility] Al hydroxide/Mg hydroxide/simethicone 200 mg-200 mg-20 mg/5 mL oral suspension 30 ml, Route: PO, Drug Form: SUSP, Dosing Weight 79.091, kg, Q4H, PRN Indigestion, Start date: 12/05/15 11:48:00 CDT, Duration: 30 day, Stop date: 01/04/16 11:47:00 CDTNotes: (aluminum hydroxide-magnesium hyd- simethicone [phone]/5ml 30 ml ud CALI) No Longer Active 12/05/2015 [facility] Lactated Ringers 1,000 mL 1,000 mL, Rate: 75 ml/hr, Infuse over: 13.3 hr, Route: IV, Dosing Weight 79.091 kg, Total Volume: 1,000, Start date: 12/05/15 11:48:00 CDT, Duration: 30 day, Stop date: 01/04/16 11:47:00 CDT No Longer Active 12/05/2015 [facility] Acetaminophen 650 mg, 2 tab, Route: PO, Drug form: TAB, Q4H, Dosing Weight 79.091, kg, PRN Pain 1-3/Temp > 100.4 F, Start date: 12/05/15 11:48:00 CDT, Duration: 30 day, Stop date: 01/04/16 11:47:00 CDTNotes: Do not exceed 4 gm/day. (Same as: Tylenol) No Longer Active 12/05/2015 [facility] Acetaminophen 325 MG / Hydrocodone Bitartrate 10 MG Oral Tablet 1 tab, Route: PO, Drug Form: TAB, Dosing Weight 79.091, kg, Q4H, PRN Pain Score 4-6, Start date: 12/05/15 11:48:00 CDT, Duration: 30 day, Stop date: 01/04/16 11:47:00 CDTNotes: Do not exceed 4gm/day of acetaminophen. (Same as: [place] 325/10) No Longer Active 12/05/2015 [facility] Hydromorphone 0.3 mg, 0.3 mL, Route: IVP, Drug form: INJ, Q3H, Dosing Weight 79.091, kg, PRN Pain Score 4-6, Start date: 12/05/15 11:48:00 CDT, Duration: 30 day, Stop date: 01/04/16 11:47:00 CDT No Longer Active 12/05/2015 [facility] rocuronium (ANES) Route: IV, Drug form: INJ, ONCE, Stop date: 12/05/15 11:43:00 CDT Inactive 12/05/2015 [facility] fentaNYL (ANES) Route: IV, Drug form: INJ, ONCE, Stop date: 12/05/15 11:43:00 CDT Inactive 12/05/2015 [facility] ceFAZolin (ANES) Route: IV, Drug form: INJ, ONCE, Stop date: 12/05/15 11:38:00 CDT Inactive 12/05/2015 [facility] ondansetron (ANES) Route: IV, Drug form: INJ, ONCE, Stop date: 12/05/15 11:28:00 CDT Inactive 12/05/2015 [facility] propofol (ANES) Route: IV, Drug form: INJ, ONCE, Stop date: 12/05/15 11:18:00 CDT Inactive 12/05/2015 [facility] lidocaine (ANES) Route: IV, Drug form: INJ, ONCE, Stop date: 12/05/15 11:18:00 CDT Inactive 12/05/2015 [facility] midazolam (ANES) Route: IV, Drug form: SOLN, ONCE, Stop date: 12/05/15 11:18:00 CDT Inactive 12/05/2015 [facility] LR 1000 mL INJ (ANES) Route: IV, Total Volume: 1,000, Start date: 12/05/15 10:44:00 CDT, Stop date: 12/05/15 11:44:00 CDT Inactive 12/05/2015 [facility] Cardizem CD 120 mg, 1 cap, Route: PO, Drug form: ERCAP, Daily, Start date: 12/05/15 9:00:00 CDT, Duration: 30 day, Stop date: 01/03/16 9:00:00 CDTNotes: (Same as: Cardizem CD) Do Not Crush Before meals. No Longer Active 12/05/2015 [facility] topiramate 25 mg, 1 tab, Route: PO, Drug form: TAB, BID, Dosing Weight 79.091, kg, Start date: 12/05/15 9:00:00 CDT, Duration: 30 day, Stop date: 01/03/16 17:00:00 CDTNotes: (Same As: Topamax) "Do Not Crush" No Longer Active 12/05/2015 [facility] Diltiaz ER (XR) Diltiaz ER (XR), 120/24 CAP, Drug form: CAP, Route: PO, Daily, 12/05/15 9:00:00 CDT, Duration: 30 day, Stop date: 01/03/16 9:00:00 CDT No Longer Active 12/05/2015 [facility] Atenol/Chlor Atenol/Chlor, 100-25mg Tab, Drug form: TAB, Route: PO, Daily, 12/05/15 9:00:00 CDT, Duration: 30 day, Stop date: 01/03/16 9:00:00 CDT No Longer Active 12/05/2015 [facility] Prinivil 40 mg, 2 tab, Route: PO, Drug form: TAB, Daily, Start date: 12/05/15 9:00:00 CDT, Duration: 30 day, Stop date: 01/03/16 9:00:00 CDTNotes: (Same as: Prinivil, Zestril) No Longer Active 12/05/2015 [facility] benazepril 40 mg, Route: PO, Daily, Dosing Weight 79.091, kg, Start date: 12/05/15 9:00:00 CDT, Duration: 30 day, Stop date: 01/03/16 9:00:00 CDT No Longer Active 12/05/2015 [facility] Thyroxine 125 microgram, 1 tab, Route: PO, Drug form: TAB, Q630AM, Dosing Weight 79.091, kg, Start date: 12/05/15 6:30:00 CDT, Duration: 30 day, Stop date: 01/03/16 6:30:00 CDTNotes: Take 1 hour before or 2 hours after meal; Enteral feeds may interefere with the absorption of this medication. (Same as:Levothroid) No Longer Active 12/05/2015 [facility] Please bring pt's own atenolol/chlorthalidone to pharmacy Please bring pt's own atenolol/chlorthalidone to pharmacy, ATTN:EMILY, Drug form: MISC, Route: MISC, QSHIFT, 12/05/15 0:00:00 CDT, Duration: 30 day, Stop date: 01/03/16 16:00:00 CDT Inactive 12/05/2015 [facility] Ambien 5 mg, 1 tab, Route: PO, Drug form: TAB, Bedtime, PRN Sleep, Start date: 12/04/15 18:21:00 CDT, Duration: 30 day, Stop date: 01/03/16 18:20:00 CDTNotes: (Same As: Ambien) No Longer Active 12/04/2015 [facility] zolpidem 10 mg, Route: PO, Drug form: TAB, Bedtime, Dosing Weight 79.091, kg, PRN Sleep, Start date: 12/04/15 17:52:00 CDT, Duration: 30 day, Stop date: 01/03/16 17:51:00 CDT Inactive 12/04/2015 [facility] benazepril 40 mg, PO, Daily, Take one tablet by mouth daily., 0 Refill(s) Active 12/04/2015 [facility] topiramate 25 mg oral tablet 25 mg=1 tab, PO, BID, 0 Refill(s) Active 12/04/2015 [facility] topiramate PO, 0 Refill(s) No Longer Active 12/04/2015 [facility] Non-Formulary Home Medication Diltiaz ER (XR) 120/24 CAP Take one capsule by mouth once daily, Refill(s) 0 Active 12/04/2015 [facility] zolpidem 10 mg oral tablet 10 mg=1 tab, PO, Bedtime, PRN as needed for sleep, 0 Refill(s) Active 12/04/2015 [facility] Thyroxine 125 microgram, PO, Daily, take one tablet by mouth once daily in the morning on an empty stomach., 0 Refill(s) Active 12/04/2015 [facility] Streptococcus pneumoniae serotype 1 capsular antigen diphtheria [id number] protein conjugate vaccine / Streptococcus pneumoniae serotype 14 capsular antigen diphtheria [id number] protein conjugate vaccine / Streptococcus pneumoniae serotype 18C capsular antigen d 0.5 mL, Route: IM, Drug Form: INJ, Daily, Start date: 12/04/15 9:00:00 CDT, Duration: 1 doses or times, Stop date: 12/04/15 9:00:00 CDTNotes: Lightly roll vial (DO NOT SHAKE) before administration. (Same as: Prevnar 13) Inactive 12/04/2015 [facility] Morphine 2 mg, 1 mL, Route: IVP, Drug form: INJ, ONCE, Dosing Weight 79.091, kg, Start date: 12/03/15 22:30:00 CDT, Stop date: 12/03/15 22:30:00 CDTNotes: (Same as:MORPhine Sulfate) Inactive 12/04/2015 [facility] Saline Flush 0.9% 10 ml, Route: IVP, Drug Form: INJ, Dosing Weight 75, kg, PRN, PRN Line Flush, Start date: 12/03/15 21:55:00 CDT, Duration: 30 day, Stop date: 01/02/16 21:54:00 CDTNotes: (Same as: BD Posiflush) No Longer Active 12/04/2015 [facility] Ondansetron 4 mg, 2 mL, Route: IVP, Drug form: INJ, Q6H, Dosing Weight 75, kg, PRN Nausea & Vomiting, Start date: 12/03/15 21:54:00 CDT, Duration: 30 day, Stop date: 01/02/16 21:53:00 CDTNotes: (Same as: Zofran) MEDICATION WASTE Product Size: 4 mg Product Wasted: ___ mg No Longer Active 12/04/2015 [facility] Morphine 2 mg, 1 mL, Route: IVP, Drug form: INJ, Q4H, Dosing Weight 75, kg, PRN Pain Score 7-10, Start date: 12/03/15 21:54:00 CDT, Duration: 30 day, Stop date: 01/02/16 21:53:00 CDTNotes: (Same as:MORPhine S ulfate) No Longer Active 12/04/2015 [facility] Acetaminophen 650 mg, 2 tab, Route: PO, Drug form: TAB, Q4H, Dosing Weight 75, kg, PRN Pain 1-3/Temp > 100.4 F, Start date: 12/03/15 21:54:00 CDT, Duration: 30 day, Stop date: 01/02/16 21:53:00 CDTNotes: Do not ex ceed 4 gm/day. (Same as: Tylenol) No Longer Active 12/04/2015 [facility] Sodium Chloride 0.154 MEQ/ML Injectable Solution 1,000 mL, Rate: 100 ml/hr, Infuse over: 10 hr, Route: IV, Dosing Weight 79.091 kg, Total Volume: 1,000, Start date: 12/03/15 21:54:00 CDT, Duration: 30 day, Stop date: 01/02/16 21:53:00 CDT No Longer Active 12/04/2015 [facility] Saline Flush 0.9% 10 ml, Route: IVP, Drug Form: INJ, Dosing Weight 75, kg, PRN, PRN Line Flush, Start date: 12/03/15 19:48:00 CDT, Duration: 30 day, Stop date: 01/02/16 19:47:00 CDTNotes: (Same as: BD Posiflush) Inactive 12/04/2015 [facility] Sodium Chloride 0.154 MEQ/ML Injectable Solution 1,000 mL, Rate: 100 ml/hr, Infuse over: 10 hr, Route: IV, Dosing Weight 75 kg, Total Volume: 1,000, Start date: 12/03/15 19:48:00 CDT, Duration: 30 day, Stop date: 01/02/16 19:47:00 CDT Inactive 12/04/2015 [facility] Ondansetron 4 mg, 2 mL, Route: IVP, Drug form: INJ, Q6H, Dosing Weight 75, kg, PRN Nausea & Vomiting, Start date: 12/03/15 19:48:00 CDT, Duration: 30 day, Stop date: 01/02/16 19:47:00 CDTNotes: (Same as: Zofran) MEDICATION WASTE Product Size: 4 mg Product Wasted: ___ mg Inactive 12/04/2015 [facility] Morphine 2 mg, 1 mL, Route: IVP, Drug form: INJ, Q4H, Dosing Weight 75, kg, PRN Pain Score 7-10, Start date: 12/03/15 19:48:00 CDT, Duration: 30 day, Stop date: 01/02/16 19:47:00 CDTNotes: (Same as:MORPhine S ulfate) Inactive 12/04/2015 [facility] Acetaminophen 650 mg, 2 tab, Route: PO, Drug form: TAB, Q4H, Dosing Weight 75, kg, PRN Pain 1-3/Temp > 100.4 F, Start date: 12/03/15 19:48:00 CDT, Duration: 30 day, Stop date: 01/02/16 19:47:00 CDTNotes: Do not ex ceed 4 gm/day. (Same as: Tylenol) Inactive 12/04/2015 [facility] Morphine 4 mg, Route: IVP, ONCE, Dosing Weight 75, kg, Priority: STAT, Start date: 12/03/15 17:51:00 CDT, Stop date: 12/03/15 17:51:00 CDT Inactive 12/03/2015 [facility] Sodium Chloride 0.154 MEQ/ML Injectable Solution 1,000 mL, 1,000 ml/hr, Infuse Over: 1 hr, Route: IV, 1,000, Drug form: INJ, ONCE, Priority: STAT, Dosing Weight 75 kg, Start date: 12/03/15 15:48:00 CDT, Duration: 1 doses or times, Stop date: 12/03/15 15:48:00 CDT Inactive 12/03/2015 [facility] Zofran 4 mg, 2 mL, Route: IVP, Drug form: INJ, ONCE, Dosing Weight 75, kg, Priority: STAT, Start date: 12/03/15 15:47:00 CDT, Stop date: 12/03/15 15:47:00 CDTNotes: (Same as: Zofran) MEDICATION WASTE Product Size: 4 mg Product Wasted: ___ mg Inactive 12/03/2015 [facility] Morphine 4 mg, 2 mL, Route: IVP, Drug form: INJ, ONCE, Dosing Weight 75, kg, Priority: STAT, Start date: 12/03/15 15:47:00 CDT, Stop date: 12/03/15 15:47:00 CDTNotes: (Same as:MORPhine Sulfate) Inactive 12/03/2015 [facility] Allergies, Adverse Reactions, Alerts No Known Medication Allergies Immunizations Immunization Date Given Site Status Last Updated Comments Source pneumococcal 13-valent vaccine 12/04/2015 Not Given [facility] [place] Results Order Name Results Value Reference Range Date Interpretation Comments Source CHEM PANEL A/G Ratio 0.6 0.7 - 1.6 12/08/2015 [facility] CHEM PANEL AGAP 11.6 10.0 - 20.0 12/08/2015 [facility] CHEM PANEL Globulin 4.0 2.7 - 4.2 12/08/2015 [facility] CHEM PANEL B/C Ratio 15 6 - 25 12/08/2015 [facility] CHEM PANEL Chloride Lvl 101 95 - 109 12/08/2015 [facility] CHEM PANEL Potassium Lvl 3.6 3.5 - 5.1 12/08/2015 [facility] CHEM PANEL Sodium Lvl 138 135 - 145 12/08/2015 [facility] CHEM PANEL BUN 16 7 - 22 12/08/2015 [facility] CHEM PANEL Glucose Lvl 91 70 - 99 12/08/2015 [facility] CHEM PANEL Creatinine Lvl 1.06 0.50 - 1.40 12/08/2015 [facility] CHEM PANEL Alk Phos 44 39 - 136 12/08/2015 [facility] CHEM PANEL AST 14 0 - 37 12/08/2015 [facility] CHEM PANEL Bili Total 0.7 0.2 - 1.3 12/08/2015 [facility] CHEM PANEL ALT 15 0 - 65 12/08/2015 [facility] CHEM PANEL Albumin Lvl 2.4 3.5 - 5.0 12/08/2015 [facility] CHEM PANEL Total Protein 6.4 6.4 - 8.4 12/08/2015 [facility] CHEM PANEL Calcium Lvl 8.1 8.5 - 10.5 12/08/2015 [facility] CHEM PANEL CO2 29 24 - 32 12/08/2015 [facility] CHEM PANEL eGFR 55 12/08/2015 Result Comment: The eGFR is calculated using the [...] from the National Kidney Disease Education Program (NKDEP) which additionally recommends that when the eGFR is used in patients with extremes of body mass index for purposes of drug dosing, the eGFR should be multiplied by the estimated BMI. [facility] MCHC 34.2 32.0 - 36.0 12/08/2015 [facility] MCV 85.5 80.0 - 98.0 12/08/2015 [facility] Hgb 10.5 12.0 - 16.0 12/08/2015 [facility] MCH 29.2 27.0 - 31.0 12/08/2015 [facility] Hct 30.9 36.0 - 48.0 12/08/2015 [facility] MPV 8.9 7.4 - 10.4 12/08/2015 [facility] Platelet 150 133 - 450 12/08/2015 [facility] RDW 12.7 11.5 - 14.5 12/08/2015 [facility] RBC 3.61 4.20 - 5.40 12/08/2015 [facility] WBC 6.3 3.7 - 10.4 12/08/2015 [facility] Basophils # 0.1 0.0 - 0.2 12/08/2015 [facility] Eosinophils # 0.3 0.0 - 0.5 12/08/2015 [facility] Monocytes # 0.6 0.0 - 0.8 12/08/2015 [facility] Lymphocytes # 1.5 1.0 - 5.5 12/08/2015 [facility] Segs-Bands # 3.8 1.5 - 8.1 12/08/2015 [facility] Basophils 0.8 0.0 - 1.0 12/08/2015 [facility] HEMATOLOGY Eosinophils 5.5 0.0 - 4.0 12/08/2015 [facility] HEMATOLOGY Monocytes 9.1 2.0 - 12.0 12/08/2015 [facility] HEMATOLOGY Lymphocytes 24.3 20.0 - 40.0 12/08/2015 [facility] HEMATOLOGY Segs 60.3 45.0 - 75.0 12/08/2015 [facility] CHEM PANEL eGFR 53 12/07/2015 Result Comment: The eGFR is calculated using the [...] from the National Kidney Disease Education Program (NKDEP) which additionally recommends that when the eGFR is used in patients with extremes of body mass index for purposes of drug dosing, the eGFR should be multiplied by the estimated BMI. [facility] CHEM PANEL AST 17 0 - 37 12/07/2015 [facility] CHEM PANEL ALT 13 0 - 65 12/07/2015 [facility] CHEM PANEL Bili Total 0.9 0.2 - 1.3 12/07/2015 [facility] CHEM PANEL Alk Phos 42 39 - 136 12/07/2015 [facility] CHEM PANEL A/G Ratio 0.7 0.7 - 1.6 12/07/2015 [facility] CHEM PANEL Total Protein 6.0 6.4 - 8.4 12/07/2015 [facility] CHEM PANEL B/C Ratio 14 6 - 25 12/07/2015 [facility] CHEM PANEL Globulin 3.6 2.7 - 4.2 12/07/2015 [facility] CHEM PANEL Albumin Lvl 2.4 3.5 - 5.0 12/07/2015 [facility] CHEM PANEL Calcium Lvl 8.0 8.5 - 10.5 12/07/2015 [facility] CHEM PANEL Potassium Lvl 3.3 3.5 - 5.1 12/07/2015 [facility] CHEM PANEL Sodium Lvl 138 135 - 145 12/07/2015 [facility] CHEM PANEL CO2 28 24 - 32 12/07/2015 [facility] CHEM PANEL Chloride Lvl 101 95 - 109 12/07/2015 [facility] CHEM PANEL AGAP 12.3 10.0 - 20.0 12/07/2015 [facility] CHEM PANEL Glucose Lvl 99 70 - 99 12/07/2015 [facility] CHEM PANEL Creatinine Lvl 1.10 0.50 - 1.40 12/07/2015 [facility] CHEM PANEL BUN 15 7 - 22 12/07/2015 [facility] HEMATOLOGY Monocytes # 0.7 0.0 - 0.8 12/07/2015 [facility] HEMATOLOGY Eosinophils # 0.3 0.0 - 0.5 12/07/2015 [facility] HEMATOLOGY Lymphocytes # 1.3 1.0 - 5.5 12/07/2015 [facility] HEMATOLOGY Eosinophils 4.0 0.0 - 4.0 12/07/2015 [facility] HEMATOLOGY Basophils 0.6 0.0 - 1.0 12/07/2015 [facility] HEMATOLOGY Segs-Bands # 4.8 1.5 - 8.1 12/07/2015 [facility] HEMATOLOGY Lymphocytes 17.9 20.0 - 40.0 12/07/2015 [facility] HEMATOLOGY Monocytes 9.3 2.0 - 12.0 12/07/2015 [facility] HEMATOLOGY Segs 68.2 45.0 - 75.0 12/07/2015 [facility] HEMATOLOGY RDW 12.6 11.5 - 14.5 12/07/2015 [facility] HEMATOLOGY Platelet 118 133 - 450 12/07/2015 [facility] HEMATOLOGY MPV 9.1 7.4 - 10.4 12/07/2015 [facility] HEMATOLOGY MCH 29.3 27.0 - 31.0 12/07/2015 [facility] HEMATOLOGY MCHC 34.4 32.0 - 36.0 12/07/2015 [facility] HEMATOLOGY Hgb 10.1 12.0 - 16.0 12/07/2015 [facility] HEMATOLOGY Hct 29.4 36.0 - 48.0 12/07/2015 [facility] HEMATOLOGY MCV 85.2 80.0 - 98.0 12/07/2015 [facility] HEMATOLOGY RBC 3.45 4.20 - 5.40 12/07/2015 [facility] HEMATOLOGY WBC 7.0 3.7 - 10.4 12/07/2015 [facility] CHEM PANEL Uric Acid 5.6 2.5 - 7.0 12/06/2015 [facility] CHEM PANEL Bili Total 0.6 0.2 - 1.3 12/06/2015 [facility] CHEM PANEL AST 15 0 - 37 12/06/2015 [facility] CHEM PANEL Alk Phos 43 39 - 136 12/06/2015 [facility] CHEM PANEL ALT 13 0 - 65 12/06/2015 [facility] CHEM PANEL Total Protein 6.2 6.4 - 8.4 12/06/2015 [facility] CHEM PANEL CO2 25 24 - 32 12/06/2015 [facility] CHEM PANEL Calcium Lvl 8.1 8.5 - 10.5 12/06/2015 [facility] CHEM PANEL Chloride Lvl 101 95 - 109 12/06/2015 [facility] CHEM PANEL Albumin Lvl 2.6 3.5 - 5.0 12/06/2015 [facility] CHEM PANEL BUN 12 7 - 22 12/06/2015 [facility] CHEM PANEL Creatinine Lvl 1.02 0.50 - 1.40 12/06/2015 [facility] CHEM PANEL Glucose Lvl 97 70 - 99 12/06/2015 [facility] CHEM PANEL Sodium Lvl 135 135 - 145 12/06/2015 [facility] CHEM PANEL Potassium Lvl 3.6 3.5 - 5.1 12/06/2015 [facility] CHEM PANEL eGFR 58 12/06/2015 Result Comment: The eGFR is calculated using the [...] from the National Kidney Disease Education Program (NKDEP) which additionally recommends that when the eGFR is used in patients with extremes of body mass index for purposes of drug dosing, the eGFR should be multiplied by the estimated BMI. [facility] CHEM PANEL AGAP 12.6 10.0 - 20.0 12/06/2015 [facility] CHEM PANEL Globulin 3.6 2.7 - 4.2 12/06/2015 [facility] CHEM PANEL B/C Ratio 12 6 - 25 12/06/2015 [facility] CHEM PANEL A/G Ratio 0.7 0.7 - 1.6 12/06/2015 [facility] MCH 29.2 27.0 - 31.0 12/06/2015 [facility] HEMATOLOGY Hct 32.7 36.0 - 48.0 12/06/2015 [facility] HEMATOLOGY RBC 3.82 4.20 - 5.40 12/06/2015 [facility] HEMATOLOGY MCV 85.6 80.0 - 98.0 12/06/2015 [facility] HEMATOLOGY Hgb 11.2 12.0 - 16.0 12/06/2015 [facility] HEMATOLOGY MPV 8.8 7.4 - 10.4 12/06/2015 [facility] RDW 13.0 11.5 - 14.5 12/06/2015 [facility] Platelet 127 133 - 450 12/06/2015 [facility] MCHC 34.1 32.0 - 36.0 12/06/2015 [facility] HEMATOLOGY WBC 8.6 3.7 - 10.4 12/06/2015 [facility] HEMATOLOGY Basophils # 0.1 0.0 - 0.2 12/06/2015 [facility] HEMATOLOGY Eosinophils # 0.3 0.0 - 0.5 12/06/2015 [facility] HEMATOLOGY Monocytes # 0.6 0.0 - 0.8 12/06/2015 [facility] Lymphocytes # 1.8 1.0 - 5.5 12/06/2015 [facility] HEMATOLOGY Segs 68.2 45.0 - 75.0 12/06/2015 [facility] HEMATOLOGY Basophils 1.1 0.0 - 1.0 12/06/2015 [facility] Monocytes 6.5 2.0 - 12.0 12/06/2015 [facility] HEMATOLOGY Segs-Bands # 5.8 1.5 - 8.1 12/06/2015 [facility] Eosinophils 3.2 0.0 - 4.0 12/06/2015 [facility] Lymphocytes 21.0 20.0 - 40.0 12/06/2015 [facility] BLOOD BANK RESULTS Antibody Scrn Negative (12/05/15 1:43 PM) 12/05/2015 [facility] BLOOD BANK RESULTS ABO/Rh A POS 12/05/2015 [facility] HEMATOLOGY PTT 27.8 22.9 - 35.8 12/04/2015 [facility] HEMATOLOGY INR 0.99 0.85 - 1.17 12/04/2015 [facility] HEMATOLOGY PT 13.4 12.0 - 14.7 12/04/2015 [facility] HEMATOLOGY Basophils # 0.1 0.0 - 0.2 12/03/2015 [facility] Pathology Reports No Data Provided for This Section Diagnostic Reports Report Value Date Source Hip 2/3 views uni DX Patient Name: SANDOVAL TOLBERT : 1950; Age: 65 years y/o Female MR: [id number] Study: 2 view examination of the left hip dated 12/07/2015. Clinical Indication: Fracture; Comparison: 12/03/2015 External rah overlie the lateral soft tissues of the left hip. There are now 3 cancellus screws through a left femoral neck fracture. Bones in near anatomic alignment. No dislocation. SL: [id number] 12/07/2015 [facility] Hip 2/3 views uni DX Study: Left hip, 11 views Clinical Indication: left hip fracture Comparison: X-ray of the pelvis from 12/03/2015 Findings/impression: Multiple, nondiagnostic intraoperative fluoroscopic views of the left hip show postoperative changes of screw fixation across a transcervical left femoral neck fracture with apposition of the major fracture fragments. SL: [id number] 12/05/2015 [facility] Femur series DX Femur series DX CLINICAL HISTORY: Pain from a fall FINDINGS/IMPRESSION: AP and lateral views of the left femur reveal minimally displaced displaced femoral neck fracture with mild override of the fracture fragments. No significant degenerative change is present. Mild generalized osteopenia. SL: [id number] 12/03/2015 [facility] Chest 1view DX Patient Name: SANDOVAL TOLBERT : 1950; Age: 65 years y/o Female MR: [id number] Study: Chest 1view DX 12/03/2015 3:48 PM CDT Ordering Physician: Clinical Indication: Shortness of Breath; Comparison: None Chest one view Mild dependent atelectasis on the left. Right lung clear. Heart size normal. Mediastinal contours normal. No pleural effusion or pneumothorax. No obvious osseous abnormality. IMPRESSION: Mild left lower lobe atelectasis. SL: [id number] 12/03/2015 [facility] Pelvis AP DX Pelvis AP DX CLINICAL HISTORY: Fracture FINDINGS/IMPRESSION: Single AP view of the pelvis is submitted for review. Minimally displaced fracture of the left femoral neck is noted. Mild generalized osteopenia. SL: [id number] 12/03/2015 [facility] Consultation Notes No Data Provided for This Section Discharge Summaries No Data Provided for This Section History and Physicals No Data Provided for This Section Vital Signs Vital Sign Value Date Comments Source Temperature Oral (F) 98.3 F 12/08/2015 [facility] Heart Rate 71 12/08/2015 [facility] Respitory Rate 14 12/08/2015 [facility] Systolic (mm Hg) 124 12/08/2015 [facility] Diastolic (mm Hg) 80 12/08/2015 [facility] Systolic (mm Hg) 120 12/08/2015 [facility] Diastolic (mm Hg) 69 12/08/2015 [facility] Respitory Rate 16 12/08/2015 [facility] Temperature Oral (F) 98.1 F 12/08/2015 [facility] Heart Rate 59 12/08/2015 [facility] Respitory Rate 16 12/08/2015 [facility] Systolic (mm Hg) 101 12/08/2015 [facility] Diastolic (mm Hg) 63 12/08/2015 [facility] Heart Rate 54 12/08/2015 [facility] Temperature Oral (F) 98.1 F 12/08/2015 [facility] Height 162.56 cm 12/04/2015 [facility] Weight 79.091 12/04/2015 [facility] BMI Calculated 29.93 12/04/2015 [facility] BMI Calculated 28.38 12/03/2015 [facility] Height 162.56 cm 12/03/2015 [facility] Weight 75 12/03/2015 [facility] Encounters Location Location Details Encounter Type Encounter Number Reason For Visit Attending Provider ADM Date DC Date Status Source [facility] Inpatient [id number] Dorian Hilda 12/03/2015 12/08/2015 [facility] [place] [id number]2016 [facility] [place] Procedures No Data Provided for This Section Assessment and Plan Assessment and Plan Date Source Extracted from:Title: Clinical Document Author: Dorian Stevens MD Date: 12/08/15 Discharge Summary Date [...] DATA: Labs (Last four charted values) WBC 9.2 (DEC 02) Hgb 13.1 (DEC 02) Hct 38.7 (DEC 02) Plt 155 (DEC 02) Na 139 (DEC 02) K 3.7 (DEC 02) CO2 24 (DEC 02) Cl 107 (DEC 02) Cr 1.19 (DEC 02) BUN H 29 (DEC 02) Glucose Random 94 (DEC 02) Ca 8.8 (DEC 02) PT 13.4 (DEC 02) INR 0.99 (DEC 02) PTT 27.8 (DEC 02) Radiology: Femur series DX CLINICAL HISTORY: [...] Signs (last 24 hrs) Last Charted Temp Oral 98.6 DegF (DEC 07 12:29) Heart Rate Peripheral 84 bpm (DEC 07 12:29) Resp Rate 14 BRMIN (DEC 07 12:29) SBP 124 mmHg (DEC 07 12:29) DBP 68 mmHg (DEC 07 12:) SpO2 98 % (DEC 07 08:33) Labs (Last four charted values) WBC 6.3 (DEC 07) 7.0 (DEC 06) 8.6 (DEC 05) 9.2 (DEC 02) Hgb L 10.5 (DEC 07) L 10.1 (DEC 06) L 11.2 (DEC 05) 13.1 (DEC 02) Hct L 30.9 (DEC 07) L 29.4 (DEC 06) L 32.7 (DEC 05) 38.7 (DEC 02) Plt 150 (DEC 07) L 118 (DEC 06) L 127 (DEC 05) 155 (DEC 02) Na 138 (DEC 07) 138 (DEC 06) 135 (DEC 05) 139 (DEC 02) K 3.6 (DEC 07) L 3.3 (DEC 06) 3.6 (DEC 05) 3.7 (DEC 02) CO2 29 (DEC 07) 28 (DEC 06) 25 (DEC 05) 24 (SEP 02) Cl 101 (DEC 07) 101 (DEC 06) 101 (DEC 05) 107 (DEC 02) Cr 1.06 (DEC 07) 1.10 (DEC 06) 1.02 (DEC 05) 1.19 (DEC 02) BUN 16 (DEC 07) 15 (DEC 06) 12 (DEC 05) H 29 (DEC 02) Glucose Random 91 (DEC 07) 99 (DEC 06) 97 (DEC 05) 94 (DEC 02) Ca L 8.1 (DEC 07) L 8.0 (DEC 06) L 8.1 (DEC 05) 8.8 (DEC 02) PT 13.4 (DEC 02) INR 0.99 (DEC 02) PTT 27.8 (DEC 02) Diet: Low Sodium Activity: As tolerated Follow Up: Primary MD in one week Medication: As per reconciliation Total time spent: 40 minutes Extracted from:Title: Clinical Document Author: Brandon Whitaker MD Date: [...] BM yet. PHYSICAL EXAMINATION: Vitals and Temp: Vitals Tmp(F) Pulse BP RR SpO2 FIO2 12/07 08:33 98.3 71 124/80 14 98 --- 12/07 04:04 98.1 59 120/69 16 94 --- 12/07 00:00 98.1 54 101/63 16 98 --- 12/06 22:09 ---- --- ----- 12 95 21% 12/06 20:00 97.6 54 135/90 16 98 --- 24 Hr Tmax: 98.4F (36.89c) at 12/06 16:00 Vital Signs are the last 5 in the [...] DATA: Labs (Last four charted values) WBC 6.3 (DEC 07) 7.0 (DEC 06) 8.6 (DEC 05) 9.2 (DEC 02) Hgb L 10.5 (DEC 07) L 10.1 (DEC 06) L 11.2 (DEC 05) 13.1 (DEC 02) Hct L 30.9 (DEC 07) L 29.4 (DEC 06) L 32.7 (DEC 05) 38.7 (DEC 02) Plt 150 (DEC 07) L 118 (DEC 06) L 127 (DEC 05) 155 (DEC 02) Na 138 (DEC 07) 138 (DEC 06) 135 (DEC 05) 139 (DEC 02) K 3.6 (DEC 07) L 3.3 (DEC 06) 3.6 (DEC 05) 3.7 (DEC 02) CO2 29 (DEC 07) 28 (DEC 06) 25 (DEC 05) 24 (DEC 02) Cl 101 (DEC 07) 101 (DEC 06) 101 (DEC 05) 107 (DEC 02) Cr 1.06 (DEC 07) 1.10 (DEC 06) 1.02 (DEC 05) 1.19 (DEC 02) BUN 16 (DEC 07) 15 (DEC 06) 12 (DEC 05) H 29 (DEC 02) Glucose Random 91 (DEC 07) 99 (DEC 06) 97 (DEC 05) 94 (DEC 02) Ca L 8.1 (DEC 07) L 8.0 (DEC 06) L 8.1 (DEC 05) 8.8 (DEC 02) PT 13.4 (DEC 02) INR 0.99 (DEC 02) PTT 27.8 (DEC 02) DIAGNOSTIC IMAGING STUDIES: No new imaging [...] A and completed toieleting with SBA. Pt transferred to chair with Min A. Pt demonstrated good understanding of partial weight bearing on LLE -Continue PT and OT. -Ready to return home with family assistance. -Eqpt recs: FWW and bedside commode. -Outpatient PT (save some sessions for when weight bearing progressed.) 12/08/2015 [facility] Plan of Care No Data Provided for This Section Social History Social History Date Source Social History TypeResponse Smoking Status Unknown if ever smoked; Exposure to Tobacco Smoke None; Cigarette Smoking Last 365 Days No; Reg Smoking Cessation Counseling No 12/04/2015 [facility] [place] Social History TypeResponse Smoking Status Unknown if ever smoked; Exposure to Tobacco Smoke None; Cigarette Smoking Last 365 Days No; Reg Smoking Cessation Counseling No 12/04/2015 [facility] Family History No Data Provided for This Section Advance Directives No Data Provided for This Section Functional Status No Data Provided for This Section
--- OUTSIDE RECORDS SUMMARY | 2018-12-22 07:37 | XMS REPORT ---
Author [facility] Address Unknown Phone Unavailable Care Team Providers Care Powder Worker Name Role Phone Liam FORTUNE Unavailable Unavailable Problems This patient has no known problems. Allergies, Adverse Reactions, Alerts This patient has no known allergies or adverse reactions. Medications This patient has no known medications. Results Test Description Test Time Test Comments Text Results Atomic Results Result Comments US ABDOMEN COMPLETE 2018-12-20 15:33:00 [place] [id number] Patient Name: SANDOVAL TOLBERT MR #: [id number] : 1950 Age/Sex: 68/F Req #: [id number] Adm Physician: Ordered by: TOSHIA FORTUNE MD Report #: [id number] Location: US Room/Bed: Procedure: [id number] US/US ABDOMEN COMPLETE Exam Date: 12/20/18 Exam Time: 1512 REPORT STATUS: Signed HISTORY : Abdominal pain COMPARISON : None COMMENT : Complete ultrasound examination of the abdomen was performed. The liver is normal in size and homogeneous in echo-texture without evidence of a focal mass. The gallbladder contains multiple shadowing echogenic gallstones. The gallbladder wall is thickened up to 7 mm. The biliary tract is within normal limits with the common bile duct measuring 3 mm in maximum diameter. The increase is secured by bowel gas. The spleen is normal in size and echo-texture measuring 10.7 cm. The right kidney measures 9.2 cm and the left kidney 10.6 cm in maximum size. There is no evidence of cysts, masses, stones or hydronephrosis. The portal vein measures to a maximum of 0.8 cm in diameter. There is no ascites or pleural effusion. The visualized inferior vena cava, hepatic veins and abdominal aorta are within normal limits. IMPRESSION : Cholelithiasis with gallbladder wall thickening. While the gallbladder is not distended and there is no pericholecystic fluid is findings can be seen in acute cholecystitis. Further evaluation can be performed with HIDA scan if clinically indicated. Signed by: Félix Ovalle MD on 12/20/2018 3:43 PM Dictated By: FÉLIX OVALLE MD [id number] Transcribed By: CHOLO on 12/20/181542 COPY TO: TOSHIA FORTUNE MD BREAST ULTRASOUND BILATERAL 2018-09-23 14:38:27 - DIAG MAMM BILATERAL IONA CAD DIGITALBILATERAL DIGITAL DIAGNOSTIC MAMMOGRAM 3D/2D WITH CAD: 09/23/2018CLINICAL: Previous breast cancer. Digital breast tomosynthesis was performed in addition to routine CC and MLO views. Current mammographic images were evaluated by either a [employer] M-Vu or a [employer] CAD (computer aided detection system). Comparison is made to exams dated 02/04/2018 [facility], 09/26/2016 mammogram, and 08/12/2007 mammogram - [facility]- . The tissue of both breasts is heterogeneously dense. This may lower the sensitivity of mammography. There are post operative findings and biopsy clips in the right breast. No suspicious mass, architectural distortion, malignant type calcification, or lymph node abnormality detected. INCOMPLETE ASSESSMENT: ADDITIONAL IMAGING EVALUATION RECOMMENDEDBilateral ultrasound pending for additional evaluation. Resume annual screening mammography in one year. - BREAST ULTRASOUND BILATERALULTRASOUND OF BOTH BREASTS AND BOTH AXILLA: 09/23/2018Comparison is made to exams dated 02/04/2018 mammogram, 09/26/2016 mammogram, and 08/12/2007 mammogram - [facility]-. Real-time ultrasound of both breasts and both axilla was performed. There is a benign 5 cm seroma in the right breast at 10 o'clock. No abnormalities were seen sonographically in the left breast or either axilla. IMPRESSION: BENIGN There is no sonographic evidence of malignancy. Patient has been informed that she has areas of dense breast tissue that could make it difficult to find a small cancer. A screening mammogram and supplemental ultrasound for dense breast tissue is recommended in 1 year.Louise Almendarez M.D. dm/:09/23/2018 14:38:27 copy to: Toshia Fortune MD, ph: [phone], fax: [phone] Technologist: Alannah Benavides , [facility]-letter sent: BIRADS 1-2 Combo FU Letter Mammogram BI-RADS: 0 Indeterminate Ultrasound BI-RADS: 2 Benign DIAG MAMM BILATERAL IONA CAD DIGITAL 2018-09-23 14:38:27 - DIAG MAMM BILATERAL IONA CAD DIGITALBILATERAL DIGITAL DIAGNOSTIC MAMMOGRAM 3D/2D WITH CAD: 09/23/2018CLINICAL: Previous breast cancer. Digital breast tomosynthesis was performed in addition to routine CC and MLO views. Current mammographic images were evaluated by either a [employer] M-Vu or a [employer] CAD (computer aided detection system). Comparison is made to exams dated 02/04/2018 [facility], 09/26/2016 mammogram, and [facility] The tissue of both breasts is heterogeneously dense. This may lower the sensitivity of mammography. There are post operative findings and biopsy clips in the right breast. No suspicious mass, architectural distortion, malignant type calcification, or lymph node abnormality detected. INCOMPLETE ASSESSMENT: ADDITIONAL IMAGING EVALUATION RECOMMENDEDBilateral ultrasound pending for additional evaluation. Resume annual screening mammography in one year. - BREAST ULTRASOUND BILATERALULTRASOUND OF BOTH BREASTS AND BOTH AXILLA: 09/23/2018Comparison is made to exams dated 02/04/2018 mammogram, 09/26/2016 mammogram, [facility] Real-time ultrasound of both breasts and both axilla was performed. There is a benign 5 cm seroma in the right breast at 10 o'clock. No abnormalities were seen sonographically in the left breast or either axilla. IMPRESSION: BENIGN There is no sonographic evidence of malignancy. Patient has been informed that she has areas of dense breast tissue that could make it difficult to find a small cancer. A screening mammogram and supplemental ultrasound for dense breast tissue is recommended in 1 year.Louise Almendarez M.D. dm/:09/23/2018 14:38:27 copy to: Toshia Fortune MD, ph: [phone], fax: [phone] Technologist: Alannah Benavides , [facility]-letter sent: BIRADS 1-2 Combo FU Letter Mammogram BI-RADS: 0 Indeterminate Ultrasound BI-RADS: 2 Benign BREAST ULTRASOUND BILATERAL 2018-02-05 08:18:21 - DIAG MAMM BILATERAL IONA CAD DIGITALBILATERAL DIGITAL DIAGNOSTIC MAMMOGRAM 3D/2D WITH CAD: 02/04/2018CLINICAL: 6 Month follow-up. Digital breast tomosynthesis was performed in addition to routine CC and MLO views. Current mammographic images were evaluated by either a [employer] M-Vu or a [employer] CAD (computer aided detection system). Comparison is made to exams dated 09/26/2016 mammogram and [facility]. The tissue of both breasts is heterogeneously dense. This may lower the sensitivity of mammography. There are post operative findings and biopsy clips in the right breast. No suspicious mass, architectural distortion, malignant type calcification, or lymph node abnormality detected. INCOMPLETE ASSESSMENT: ADDITIONAL IMAGING EVALUATION RECOMMENDEDUltrasound pending for additional evaluation. A follow-up mammogram and an ultrasound in 6 months is recommended to demonstrate stability. - BREAST ULTRASOUND BILATERALULTRASOUND OF BOTH BREASTS AND BOTH AXILLA: 02/04/2018Comparison is made to exams dated 09/26/2016 mammogram and [facility] Real-time ultrasound of both breasts and both axilla was performed. There is a benign 5.5 cm post surgical seroma in the right breast at 10 o'clock, 5 cm from the nipple. No abnormalities were seen sonographically in the left breast or either axilla. IMPRESSION: BENIGN - FOLLOW-UP RECOMMENDEDThere is no sonographic evidence of malignancy. A follow- up mammogram and an ultrasound in 6 months is recommended to demonstrate stability. Louise Almendarez M.D. dm/:02/05/2018 08:18:21 Requirements Engineer: Dalia BOYLE, [facility] sent: BIRADS 1-2 Combo FU Letter Mammogram BI-RADS: 0 Indeterminate Ultrasound BI-RADS: 2 Benign DIAG MAMM BILATERAL IONA CAD DIGITAL 2018-02-05 08:18:21 - DIAG MAMM BILATERAL IONA CAD DIGITALBILATERAL DIGITAL DIAGNOSTIC MAMMOGRAM 3D/2D WITH CAD: 02/04/2018CLINICAL: 6 Month follow-up. Digital breast tomosynthesis was performed in addition to routine CC and MLO views. Current mammographic images were evaluated by either a [employer] M-Vu or a [employer] CAD (computer aided detection system). Comparison is made to exams dated 09/26/2016 mammogram and [facility] The tissue of both breasts is heterogeneously dense. This may lower the sensitivity of mammography. There are post operative findings and biopsy clips in the right breast. No suspicious mass, architectural distortion, malignant type calcification, or lymph node abnormality detected. INCOMPLETE ASSESSMENT: ADDITIONAL IMAGING EVALUATION RECOMMENDEDUltrasound pending for additional evaluation. A follow-up mammogram and an ultrasound in 6 months is recommended to demonstrate stability. - BREAST ULTRASOUND BILATERALULTRASOUND OF BOTH BREASTS AND BOTH AXILLA: 02/04/2018Comparison is made to exams dated 09/26/2016 mammogram and [facility] Real-time ultrasound of both breasts and both axilla was performed. There is a benign 5.5 cm post surgical seroma in the right breast at 10 o'clock, 5 cm from the nipple. No abnormalities were seen sonographically in the left breast or either axilla.
--- OUTSIDE RECORDS SUMMARY | 2018-12-22 07:37 | XMS REPORT | Summary of Care ---
Author Author [facility] Address Unknown Phone Unavailable Encounter HQ Encntr_alias(FIN) [id number] Date(s): 12/09/15 - 01/07/16 [facility] Discharge Disposition: Home or Self Care Attending Physician: Dorian Stevens MD Vital Signs No data available for this section Problem List Condition Effective Dates Status Health Status Informant Gout(Confirmed) Active Hypertension(Confirm Active ed) Hypothyroid(Confirme Active d) Allergies, Adverse Reactions, Alerts Substance Reaction Severity Status NKDA Active Medications No data available for this section Results No data available for this section Immunizations Not Given Vaccine Date Status Refusal Reason pneumococcal 13-valent vaccine 12/04/15 Not Given Parent Or Guardian Refuses Procedures No data available for this section Social History Social History Type Response Smoking Status Unknown if ever smoked; Exposure to Tobacco Smoke None; Cigarette Smoking Last 365 Days No; Reg Smoking Cessation Counseling No Assessment and Plan No data available for this section
[2018-12-22] MEDS ORDERED: ZOLPIDEM TARTRA10 MG PO (07:56)
[2018-12-22] MEDS ORDERED: ANASTROZOLE1 MG PO (07:56)
[2018-12-22] MEDS ORDERED: INDOMETHACIN50 MG PO (07:56)
[2018-12-22] MEDS ORDERED: LEVOTHYROXINE112 MCG PO (07:56)
[2018-12-22] MEDS ORDERED: ALLOPURINOL100 MG PO (07:56)
[2018-12-22] MEDS ORDERED: DILTIAZEM ER180 M1 PO (07:56)
[2018-12-22] MEDS ORDERED: LOSARTAN POTASS25 MG PO (07:58)
[2018-12-22] MEDS ORDERED: TOPAMAX25 MG PO (07:58)
[2018-12-22] MEDS ORDERED: GABAPENTIN100 MG PO (07:58)
[2018-12-22] MEDS ORDERED: SODIUM CHLORIDE 0.9% 1000ML 1,000 ML IV STA (08:08)
[2018-12-22] MEDS ORDERED: MORPHINE SULFATE 2 MG/ML SYR 1ML IV NR (08:15)
[2018-12-22] MEDS ORDERED: ONDANSETRON HCL INJ 2MG/ML 2ML 2 MG/ML VIAL IV NR (08:15)
[2018-12-22 08:34] LABS: BASOPHILS % 0.7 % (0.0-1.0); EOSINOPHILS # (AUTO) 0.2 (0.0-0.4); HEMATOCRIT 40.4 % (34.2-44.1); HEMOGLOBIN 13.9 g/dL (12.0-16.0); LYMPHOCYTES # (AUTO) 1.1 (1.0-3.2); LYMPHOCYTES % 19.4 % (18.0-39.1); MEAN CORPUSCULAR HEMOGLOBIN 29.6 pg (28-32); MEAN CORPUSCULAR HGB CONC 34.4 g/dL (31-35); MEAN CORPUSCULAR VOLUME 86.1 fL (81-99); MONOCYTES # (AUTO) 0.5 (0.2-0.8); MONOCYTES % 8.5 % (4.4-11.3); NEUTROPHILS # (AUTO) 3.7 (2.1-6.9); PLATELET COUNT 191 x10e3/uL (140-360); RED BLOOD COUNT 4.69 x10e6/uL (3.6-5.1)
[2018-12-22 08:44] LABS: BILIRUBIN,URINE NEGATIVE (NEGATIVE); CLARITY,URINE SL CLOUDY (CLEAR); COLOR,URINE YELLOW (YELLOW); KETONES,URINE NEGATIVE (NEGATIVE); LEUKOCYTE ESTERASE ,URINE 2+ (NEGATIVE); NITRITE,URINE NEGATIVE (NEGATIVE); PROTEIN,URINE DIPSTICK TRACE (NEGATIVE); URINE UROBILINOGEN 0.2 mg/dL (0.2 - 1)
[2018-12-22 08:50] LABS: BACTERIA,URINE FEW /HPF; EPITHELIAL CELLS,URINE FEW /LPF; RBC,URINE 0-5 /HPF (0-5)
[2018-12-22 08:51] LABS: INR 0.89; PROTHROMBIN TIME 12.5 seconds (11.9-14.5)
[2018-12-22 08:52] LABS: MUCUS,URINE MODERATE (RARE)
[2018-12-22 08:52] LABS: PARTIAL THROMBOPLASTIN TIME 33.8 seconds (23.8-35.5)
[2018-12-22 09:16] LABS: ALBUMIN 3.5 g/dL (3.5-5.0); ALBUMIN/GLOBULIN RATIO 0.9 (0.8-2.0); ANION GAP 12.8 mmol/L (8-16); CALCIUM 9.8 mg/dL (8.4-10.2); CREATININE, SERUM 1.1 mg/dL (0.57-1.11); POTASSIUM 3.8 mmol/L (3.5-5.1)
--- NOTE | 2018-12-22 09:20 | Diagnostic Imaging Report ---
Examination: Single AP view of the chest. COMPARISON: None. INDICATION: Abdominal pain DISCUSSION: Lines/tubes: None. Lungs: The lungs are well inflated and clear. No pneumonia or pulmonary edema. Pleura: No pleural effusion or pneumothorax. Heart and mediastinum: The heart and the mediastinum are unremarkable. Bones and soft tissues: No acute bony abnormalities. IMPRESSION: 1. No acute cardiopulmonary abnormalities. Signed by: Dr. David Epps M.D. on 12/22/2018 9:17 AM
[2018-12-22 09:25] LABS: CREATINE KINASE MB 0.7 ng/mL (0-5.0)
[2018-12-22] MEDS ORDERED: PANTOPRAZOLE 40 MG 10ML VIAL IV NR (09:30)
[2018-12-22] MEDS ORDERED: ONDANSETRON HCL INJ 2MG/ML 2ML 2 MG/ML VIAL IV PRN (09:30)
--- OUTSIDE RECORDS SUMMARY | 2018-12-22 09:36 | XMS REPORT | Continuity of Care Document ---
Author Author [employer] Organization [employer] Address Unknown Phone Unavailable Care Team Providers Care First Line Supervisor Name Role Phone [employer] Unavailable Unavailable Problems Problem Status Onset Date Classification Date Reported Comments Source FALL/HIP PAIN Active 12/03/2015 [facility] L FEMORAL NECK FRACTURE Active 12/03/2015 [facility] Gout (disorder) Active [facility] Hypertensive disorder, systemic arterial (disorder) Active Problem 01/10/2016 [facility] Hypothyroidism (disorder) [facility] UNSPECIFIED FRACTURE OF BASE OF SKULL, S Active [facility] HIP FX Active [facility] DIFFICULTY IN WALKING, NOT ELSEWHERE CLA [facility] FRACTURE OF UNSP PART OF NECK OF LEFT FE Active [facility] [place] Medications Medication Details Route Status Patient Instructions Ordering Provider Order Date Source Acetaminophen 325 MG / Hydrocodone Bitartrate 10 MG Oral Tablet [Unadilla 10] See Instructions, PRN Pain Score 7-10, 1 tab PO Q4-6H as needed, # 60 tab, 0 Refill(s), given to patient Active 12/08/2015 [facility] Acetaminophen 300 MG / Codeine Phosphate 30 MG Oral Tablet 1 tab, PO, Q4H, PRN Pain Score 4-6, X 14 day, # 84 tab, 0 Refill(s) Inactive 12/08/2015 [facility] Physical Therapy See Instructions, MISC, ONCALL, Evaluate and Treat 2-3 times per week for 4-6 weeks, # 1 ea, 0 Refill(s) Active 12/07/2015 [facility] Allopurinol 100 mg, 1 tab, Route: PO, Drug form: TAB, Daily, Dosing Weight 79.091, kg, Start date: 12/07/15 9:00:00 CDT, Duration: 30 day, Stop date: 01/05/16 9:00:00 CDTNotes: (Same as: Zyloprim) No Longer Active 12/07/2015 [facility] Colchicine 0.6 mg, Route: PO, Drug form: TAB, ONCE, Dosing Weight 79.091, kg, Start date: 12/06/15 11:51:00 CDT, Stop date: 12/06/15 11:51:00 CDT Inactive 12/06/2015 [facility] Acetaminophen 300 MG / Codeine Phosphate 30 MG Oral Tablet 1 tab, Route: PO, Drug Form: TAB, Dosing Weight 79.091, kg, Q4H, PRN Pain Score 4-6, Start date: 12/06/15 10:53:00 CDT, Duration: 30 day, Stop date: 01/05/16 10:52:00 CDTNotes: Do not exceed 4gm/day of acetaminophen. (Same as: Tylenol with Codeine # 3) No Longer Active 12/06/2015 [facility] Colchicine 1.2 mg, 2 tab, Route: PO, Drug form: TAB, ONCE, Dosing Weight 79.091, kg, Start date: 12/06/15 10:51:00 CDT, Stop date: 12/06/15 10:51:00 CDT Inactive 12/06/2015 [facility] pantoprazole 40 mg, 1 tab, Route: PO, Drug form: ECTAB, Daily, Dosing Weight 79.091, kg, Start date: 12/06/15 9:00:00 CDT, Duration: 30 day, Stop date: 01/04/16 9:00:00 CDTNotes: Tablet should not be chewed or cr ushed. (Same as: Protonix) No Longer Active 12/06/2015 [facility] Lovenox 40 mg, 0.4 mL, Route: SUB-Q, Drug form: INJ, [id number], Dosing Weight 79.091, kg, Start date: 12/06/15 9:00:00 CDT, Duration: 30 day, Stop date: 01/04/16 9:00:00 CDTNotes: (Same as: Lovenox) No Longer Active 12/06/2015 [facility] indomethacin 50 mg oral capsule 50 mg=1 cap, PO, Q4H, Pt. Does not take medication as prescribed, she takes medicaion PRN., 0 Refill(s) Active 12/06/2015 [facility] allopurinol 100 mg oral tablet 100 mg=1 tab, PO, Daily, 0 Refill(s) Active 12/06/2015 [facility] ceFAZolin (SCIP) 1 gm, 100 mL, Route: IVPB, Drug form: INJ, [id number], Dosing Weight 79.091, kg, Start date: 12/05/15 19:00:00 CDT, Duration: 1 doses or times, Stop date: 12/05/15 19:00:00 CDT Inactive 12/06/2015 [facility] Docusate Sodium 100 MG Oral Capsule 100 mg, 1 cap, Route: PO, Drug form: CAP, BID, Dosing Weight 79.091, kg, Start date: 12/05/15 17:00:00 CDT, Duration: 30 day, Stop date: 01/04/16 9:00:00 CDTNotes: (Same as: Colace) (Do Not Crush) No Longer Active 12/05/2015 [facility] clindamycin (SCIP) 600 mg, 50 mL, Route: IVPB, Drug form: INJ, Q8H, Dosing Weight 79.091, kg, Start date: 12/05/15 16:00:00 CDT, Duration: 1 doses or times, Stop date: 12/05/15 16:00:00 CDT Inactive 12/05/2015 [facility] Ancef 2 gm, 100 mL, Route: IVPB, Drug form: INJ, ONCE, Dosing Weight 79.091, kg, Start date: 12/05/15 13:51:00 CDT, Duration: 1 doses or times, Stop date: 12/05/15 13:51:00 CDT, Surgical Prophylaxis Only; For patients Notes: Same as: Ancef Inactive 12/05/2015 [facility] atenolol-chlorthalidone 100 mg-25 mg oral tablet 1 tab, Route: PO, Drug Form: TAB, Daily, Start date: 12/05/15 13:30:00 CDT, Duration: 30 day, Stop date: 01/03/16 13:30:00 CDTNotes: Non-Formulary Drug (Same As: Atenolol-Chlorthal,Tenoretic 100-25) No Longer Active 12/05/2015 [facility] neostigmine (ANES) Route: IV, Drug form: INJ, ONCE, Stop date: 12/05/15 12:02:00 CDT Inactive 12/05/2015 [facility] glycopyrrolate (ANES) Route: IV, Drug form: INJ, ONCE, Stop date: 12/05/15 12:02:00 CDT Inactive 12/05/2015 [facility] Labetalol 10 mg, Route: IVP, Q5Min, Dosing Weight 79.091, kg, PRN Elevated BP, Start date: 12/05/15 12:02:00 CDT, Duration: 5 doses or times, Stop date: Limited # of times Inactive 12/05/2015 [facility] Fentanyl 25 microgram, Route: IVP, Q5Min, Dosing Weight 79.091, kg, PRN Pain Score 4-6, Start date: 12/05/15 12:02:00 CDT, Duration: 4 doses or times, Stop date: Limited # of times Inactive 12/05/2015 [facility] Morphine 2 mg, Route: IVP, Q5Min, Dosing Weight 79.091, kg, PRN Pain Score 4-6, Start date: 12/05/15 12:02:00 CDT, Duration: 5 doses or times, Stop date: Limited # of times Inactive 12/05/2015 [facility] Flumazenil 0.2 mg, Route: IVP, PRN, Dosing Weight 79.091, kg, PRN Benzodiazepine Reversal, Initial dose, Start date: 12/05/15 12:02:00 CDT, Duration: 30 day, Stop date: 01/04/16 12:01:00 CDT Inactive 12/05/2015 [facility] Naloxone 0.4 mg, Route: IVP, Q2MIN, Dosing Weight 79.091, kg, PRN Narcotic Reversal, Start date: 12/05/15 12:02:00 CDT, Duration: 8 doses or times, Stop date: Limited # of times Inactive 12/05/2015 [facility] Ondansetron 4 mg, Route: IVP, ONCE, Dosing Weight 79.091, kg, PRN Nausea & Vomiting, Start date: 12/05/15 12:02:00 CDT Inactive 12/05/2015 [facility] Diphenhydramine 12.5 mg, 0.5 tab, Route: PO, Drug form: TAB, Q6H, Dosing Weight 79.091, kg, PRN Itching, Start date: 12/05/15 11:48:00 CDT, Duration: 30 day, Stop date: 01/04/16 11:47:00 CDT No Longer Active 12/05/2015 [facility] Dulcolax Laxative 5 mg, 1 tab, Route: PO, Drug form: ECTAB, Q24H, Dosing Weight 79.091, kg, PRN Constipation, Start date: 12/05/15 11:48:00 CDT, Duration: 30 day, Stop date: 01/04/16 11:47:00 CDTNotes: (Same As: Dulcolax , Correctol) (Do Not Crush) "Do Not Crush" No Longer Active 12/05/2015 [facility] Al hydroxide/Mg hydroxide/simethicone 200 mg-200 mg-20 mg/5 mL oral suspension 30 ml, Route: PO, Drug Form: SUSP, Dosing Weight 79.091, kg, Q4H, PRN Indigestion, Start date: 12/05/15 11:48:00 CDT, Duration: 30 day, Stop date: 01/04/16 11:47:00 CDTNotes: (aluminum hydroxide-magnesium hyd- simethicone [phone]/5ml 30 ml ud CALI) No Longer Active 12/05/2015 [facility] Lactated Ringers 1,000 mL 1,000 mL, Rate: 75 ml/hr, Infuse over: 13.3 hr, Route: IV, Dosing Weight 79.091 kg, Total Volume: 1,000, Start date: 12/05/15 11:48:00 CDT, Duration: 30 day, Stop date: 01/04/16 11:47:00 CDT No Longer Active 12/05/2015 [facility] Acetaminophen 650 mg, 2 tab, Route: PO, Drug form: TAB, Q4H, Dosing Weight 79.091, kg, PRN Pain 1-3/Temp > 100.4 F, Start date: 12/05/15 11:48:00 CDT, Duration: 30 day, Stop date: 01/04/16 11:47:00 CDTNotes: Do not exceed 4 gm/day. (Same as: Tylenol) No Longer Active 12/05/2015 [facility] Acetaminophen 325 MG / Hydrocodone Bitartrate 10 MG Oral Tablet 1 tab, Route: PO, Drug Form: TAB, Dosing Weight 79.091, kg, Q4H, PRN Pain Score 4-6, Start date: 12/05/15 11:48:00 CDT, Duration: 30 day, Stop date: 01/04/16 11:47:00 CDTNotes: Do not exceed 4gm/day of acetaminophen. (Same as: Unadilla 325/10) No Longer Active 12/05/2015 [facility] Hydromorphone 0.3 mg, 0.3 mL, Route: IVP, Drug form: INJ, Q3H, Dosing Weight 79.091, kg, PRN Pain Score 4-6, Start date: 12/05/15 11:48:00 CDT, Duration: 30 day, Stop date: 01/04/16 11:47:00 CDT No Longer Active 12/05/2015 [facility] rocuronium (ANES) Route: IV, Drug form: INJ, ONCE, Stop date: 12/05/15 11:43:00 CDT Inactive 12/05/2015 [facility] fentaNYL (ANES) Route: IV, Drug form: INJ, ONCE, Stop date: 12/05/15 11:43:00 CDT Inactive 12/05/2015 [facility] ceFAZolin (ANES) Route: IV, Drug form: INJ, ONCE, Stop date: 12/05/15 11:38:00 CDT Inactive 12/05/2015 [facility] ondansetron (ANES) Route: IV, Drug form: INJ, ONCE, Stop date: 12/05/15 11:28:00 CDT Inactive 12/05/2015 [facility] propofol (ANES) Route: IV, Drug form: INJ, ONCE, Stop date: 12/05/15 11:18:00 CDT Inactive 12/05/2015 [facility] lidocaine (ANES) Route: IV, Drug form: INJ, ONCE, Stop date: 12/05/15 11:18:00 CDT Inactive 12/05/2015 [facility] midazolam (ANES) Route: IV, Drug form: SOLN, ONCE, Stop date: 12/05/15 11:18:00 CDT Inactive 12/05/2015 [facility] LR 1000 mL INJ (ANES) Route: IV, Total Volume: 1,000, Start date: 12/05/15 10:44:00 CDT, Stop date: 12/05/15 11:44:00 CDT Inactive 12/05/2015 [facility] Cardizem CD 120 mg, 1 cap, Route: PO, Drug form: ERCAP, Daily, Start date: 12/05/15 9:00:00 CDT, Duration: 30 day, Stop date: 01/03/16 9:00:00 CDTNotes: (Same as: Cardizem CD) Do Not Crush Before meals. No Longer Active 12/05/2015 [facility] topiramate 25 mg, 1 tab, Route: PO, Drug form: TAB, BID, Dosing Weight 79.091, kg, Start date: 12/05/15 9:00:00 CDT, Duration: 30 day, Stop date: 01/03/16 17:00:00 CDTNotes: (Same As: Topamax) "Do Not Crush" No Longer Active 12/05/2015 [facility] Diltiaz ER (XR) Diltiaz ER (XR), 120/24 CAP, Drug form: CAP, Route: PO, Daily, 12/05/15 9:00:00 CDT, Duration: 30 day, Stop date: 01/03/16 9:00:00 CDT No Longer Active 12/05/2015 [facility] Atenol/Chlor Atenol/Chlor, 100-25mg Tab, Drug form: TAB, Route: PO, Daily, 12/05/15 9:00:00 CDT, Duration: 30 day, Stop date: 01/03/16 9:00:00 CDT No Longer Active 12/05/2015 [facility] Prinivil 40 mg, 2 tab, Route: PO, Drug form: TAB, Daily, Start date: 12/05/15 9:00:00 CDT, Duration: 30 day, Stop date: 01/03/16 9:00:00 CDTNotes: (Same as: Prinivil, Zestril) No Longer Active 12/05/2015 [facility] benazepril 40 mg, Route: PO, Daily, Dosing Weight 79.091, kg, Start date: 12/05/15 9:00:00 CDT, Duration: 30 day, Stop date: 01/03/16 9:00:00 CDT No Longer Active 12/05/2015 [facility] Thyroxine 125 microgram, 1 tab, Route: PO, Drug form: TAB, Q630AM, Dosing Weight 79.091, kg, Start date: 12/05/15 6:30:00 CDT, Duration: 30 day, Stop date: 01/03/16 6:30:00 CDTNotes: Take 1 hour before or 2 hours after meal; Enteral feeds may interefere with the absorption of this medication. (Same as:Levothroid) No Longer Active 12/05/2015 [facility] Please bring pt's own atenolol/chlorthalidone to pharmacy Please bring pt's own atenolol/chlorthalidone to pharmacy, ATTN:EMILY, Drug form: MISC, Route: MISC, QSHIFT, 12/05/15 0:00:00 CDT, Duration: 30 day, Stop date: 01/03/16 16:00:00 CDT Inactive 12/05/2015 [facility] Ambien 5 mg, 1 tab, Route: PO, Drug form: TAB, Bedtime, PRN Sleep, Start date: 12/04/15 18:21:00 CDT, Duration: 30 day, Stop date: 01/03/16 18:20:00 CDTNotes: (Same As: Ambien) No Longer Active 12/04/2015 [facility] zolpidem 10 mg, Route: PO, Drug form: TAB, Bedtime, Dosing Weight 79.091, kg, PRN Sleep, Start date: 12/04/15 17:52:00 CDT, Duration: 30 day, Stop date: 01/03/16 17:51:00 CDT Inactive 12/04/2015 [facility] benazepril 40 mg, PO, Daily, Take one tablet by mouth daily., 0 Refill(s) Active 12/04/2015 [facility] topiramate 25 mg oral tablet 25 mg=1 tab, PO, BID, 0 Refill(s) Active 12/04/2015 [facility] topiramate PO, 0 Refill(s) No Longer Active 12/04/2015 [facility] Non-Formulary Home Medication Diltiaz ER (XR) 120/24 CAP Take one capsule by mouth once daily, Refill(s) 0 Active 12/04/2015 [facility] zolpidem 10 mg oral tablet 10 mg=1 tab, PO, Bedtime, PRN as needed for sleep, 0 Refill(s) Active 12/04/2015 [facility] Thyroxine 125 microgram, PO, Daily, take one tablet by mouth once daily in the morning on an empty stomach., 0 Refill(s) Active 12/04/2015 [facility] Streptococcus pneumoniae serotype 1 capsular antigen diphtheria [id number] protein conjugate vaccine / Streptococcus pneumoniae serotype 14 capsular antigen diphtheria [id number] protein conjugate vaccine / Streptococcus pneumoniae serotype 18C capsular antigen d 0.5 mL, Route: IM, Drug Form: INJ, Daily, Start date: 12/04/15 9:00:00 CDT, Duration: 1 doses or times, Stop date: 12/04/15 9:00:00 CDTNotes: Lightly roll vial (DO NOT SHAKE) before administration. (Same as: Prevnar 13) Inactive 12/04/2015 [facility] Morphine 2 mg, 1 mL, Route: IVP, Drug form: INJ, ONCE, Dosing Weight 79.091, kg, Start date: 12/03/15 22:30:00 CDT, Stop date: 12/03/15 22:30:00 CDTNotes: (Same as:MORPhine Sulfate) Inactive 12/04/2015 [facility] Saline Flush 0.9% 10 ml, Route: IVP, Drug Form: INJ, Dosing Weight 75, kg, PRN, PRN Line Flush, Start date: 12/03/15 21:55:00 CDT, Duration: 30 day, Stop date: 01/02/16 21:54:00 CDTNotes: (Same as: BD Posiflush) No Longer Active 12/04/2015 [facility] Ondansetron 4 mg, 2 mL, Route: IVP, Drug form: INJ, Q6H, Dosing Weight 75, kg, PRN Nausea & Vomiting, Start date: 12/03/15 21:54:00 CDT, Duration: 30 day, Stop date: 01/02/16 21:53:00 CDTNotes: (Same as: Zofran) MEDICATION WASTE Product Size: 4 mg Product Wasted: ___ mg No Longer Active 12/04/2015 [facility] Morphine 2 mg, 1 mL, Route: IVP, Drug form: INJ, Q4H, Dosing Weight 75, kg, PRN Pain Score 7-10, Start date: 12/03/15 21:54:00 CDT, Duration: 30 day, Stop date: 01/02/16 21:53:00 CDTNotes: (Same as:MORPhine S ulfate) No Longer Active 12/04/2015 [facility] Acetaminophen 650 mg, 2 tab, Route: PO, Drug form: TAB, Q4H, Dosing Weight 75, kg, PRN Pain 1-3/Temp > 100.4 F, Start date: 12/03/15 21:54:00 CDT, Duration: 30 day, Stop date: 01/02/16 21:53:00 CDTNotes: Do not ex ceed 4 gm/day. (Same as: Tylenol) No Longer Active 12/04/2015 [facility] Sodium Chloride 0.154 MEQ/ML Injectable Solution 1,000 mL, Rate: 100 ml/hr, Infuse over: 10 hr, Route: IV, Dosing Weight 79.091 kg, Total Volume: 1,000, Start date: 12/03/15 21:54:00 CDT, Duration: 30 day, Stop date: 01/02/16 21:53:00 CDT No Longer Active 12/04/2015 [facility] Saline Flush 0.9% 10 ml, Route: IVP, Drug Form: INJ, Dosing Weight 75, kg, PRN, PRN Line Flush, Start date: 12/03/15 19:48:00 CDT, Duration: 30 day, Stop date: 01/02/16 19:47:00 CDTNotes: (Same as: BD Posiflush) Inactive 12/04/2015 [facility] Sodium Chloride 0.154 MEQ/ML Injectable Solution 1,000 mL, Rate: 100 ml/hr, Infuse over: 10 hr, Route: IV, Dosing Weight 75 kg, Total Volume: 1,000, Start date: 12/03/15 19:48:00 CDT, Duration: 30 day, Stop date: 01/02/16 19:47:00 CDT Inactive 12/04/2015 [facility] Ondansetron 4 mg, 2 mL, Route: IVP, Drug form: INJ, Q6H, Dosing Weight 75, kg, PRN Nausea & Vomiting, Start date: 12/03/15 19:48:00 CDT, Duration: 30 day, Stop date: 01/02/16 19:47:00 CDTNotes: (Same as: Zofran) MEDICATION WASTE Product Size: 4 mg Product Wasted: ___ mg Inactive 12/04/2015 [facility] Morphine 2 mg, 1 mL, Route: IVP, Drug form: INJ, Q4H, Dosing Weight 75, kg, PRN Pain Score 7-10, Start date: 12/03/15 19:48:00 CDT, Duration: 30 day, Stop date: 01/02/16 19:47:00 CDTNotes: (Same as:MORPhine S ulfate) Inactive 12/04/2015 [facility] Acetaminophen 650 mg, 2 tab, Route: PO, Drug form: TAB, Q4H, Dosing Weight 75, kg, PRN Pain 1-3/Temp > 100.4 F, Start date: 12/03/15 19:48:00 CDT, Duration: 30 day, Stop date: 01/02/16 19:47:00 CDTNotes: Do not ex ceed 4 gm/day. (Same as: Tylenol) Inactive 12/04/2015 [facility] Morphine 4 mg, Route: IVP, ONCE, Dosing Weight 75, kg, Priority: STAT, Start date: 12/03/15 17:51:00 CDT, Stop date: 12/03/15 17:51:00 CDT Inactive 12/03/2015 [facility] Sodium Chloride 0.154 MEQ/ML Injectable Solution 1,000 mL, 1,000 ml/hr, Infuse Over: 1 hr, Route: IV, 1,000, Drug form: INJ, ONCE, Priority: STAT, Dosing Weight 75 kg, Start date: 12/03/15 15:48:00 CDT, Duration: 1 doses or times, Stop date: 12/03/15 15:48:00 CDT Inactive 12/03/2015 [facility] Zofran 4 mg, 2 mL, Route: IVP, Drug form: INJ, ONCE, Dosing Weight 75, kg, Priority: STAT, Start date: 12/03/15 15:47:00 CDT, Stop date: 12/03/15 15:47:00 CDTNotes: (Same as: Zofran) MEDICATION WASTE Product Size: 4 mg Product Wasted: ___ mg Inactive 12/03/2015 [facility] Morphine 4 mg, 2 mL, Route: IVP, Drug form: INJ, ONCE, Dosing Weight 75, kg, Priority: STAT, Start date: 12/03/15 15:47:00 CDT, Stop date: 12/03/15 15:47:00 CDTNotes: (Same as:MORPhine Sulfate) Inactive 12/03/2015 [facility] Allergies, Adverse Reactions, Alerts No Known Medication Allergies Immunizations Immunization Date Given Site Status Last Updated Comments Source pneumococcal 13-valent vaccine 12/04/2015 Not Given [facility] [place] Results Order Name Results Value Reference Range Date Interpretation Comments Source CHEM PANEL A/G Ratio 0.6 0.7 - 1.6 12/08/2015 [facility] CHEM PANEL AGAP 11.6 10.0 - 20.0 12/08/2015 [facility] CHEM PANEL Globulin 4.0 2.7 - 4.2 12/08/2015 [facility] CHEM PANEL B/C Ratio 15 6 - 25 12/08/2015 [facility] CHEM PANEL Chloride Lvl 101 95 - 109 12/08/2015 [facility] CHEM PANEL Potassium Lvl 3.6 3.5 - 5.1 12/08/2015 [facility] CHEM PANEL Sodium Lvl 138 135 - 145 12/08/2015 [facility] CHEM PANEL BUN 16 7 - 22 12/08/2015 [facility] CHEM PANEL Glucose Lvl 91 70 - 99 12/08/2015 [facility] CHEM PANEL Creatinine Lvl 1.06 0.50 - 1.40 12/08/2015 [facility] CHEM PANEL Alk Phos 44 39 - 136 12/08/2015 [facility] CHEM PANEL AST 14 0 - 37 12/08/2015 [facility] CHEM PANEL Bili Total 0.7 0.2 - 1.3 12/08/2015 [facility] CHEM PANEL ALT 15 0 - 65 12/08/2015 [facility] CHEM PANEL Albumin Lvl 2.4 3.5 - 5.0 12/08/2015 [facility] CHEM PANEL Total Protein 6.4 6.4 - 8.4 12/08/2015 [facility] CHEM PANEL Calcium Lvl 8.1 8.5 - 10.5 12/08/2015 [facility] CHEM PANEL CO2 29 24 - 32 12/08/2015 [facility] CHEM PANEL eGFR 55 12/08/2015 Result [...] should be multiplied by the estimated BMI. [facility] MCHC 34.2 32.0 - 36.0 12/08/[address] [facility] MCV 85.5 80.0 - 98.0 12/08/[address] [facility] Hgb 10.5 12.0 - 16.0 12/08/[address] [facility] MCH 29.2 27.0 - 31.0 12/08/[address] [facility] Hct 30.9 36.0 - 48.0 12/08/[address] [facility] MPV 8.9 7.4 - 10.4 12/08/[address] [facility] Platelet 150 133 - 450 12/08/[address] [facility] RDW 12.7 11.5 - 14.5 12/08/[address] [facility] RBC 3.61 4.20 - 5.40 12/08/[address] [facility] WBC 6.3 3.7 - 10.4 12/08/[address] [facility] Basophils # 0.1 0.0 - 0.2 12/08/[address] [facility] Eosinophils # 0.3 0.0 - 0.5 12/08/[address] [facility] Monocytes # 0.6 0.0 - 0.8 12/08/[address] [facility] Lymphocytes # 1.5 1.0 - 5.5 12/08/[address] [facility] Segs-Bands # 3.8 1.5 - 8.1 12/08/[address] [facility] Basophils 0.8 0.0 - 1.0 12/08/2015 [facility] HEMATOLOGY Eosinophils 5.5 0.0 - 4.0 12/08/2015 [facility] HEMATOLOGY Monocytes 9.1 2.0 - 12.0 12/08/2015 [facility] HEMATOLOGY Lymphocytes 24.3 20.0 - 40.0 12/08/2015 [facility] HEMATOLOGY Segs 60.3 45.0 - 75.0 12/08/2015 [facility] CHEM PANEL eGFR 53 12/07/2015 Result [...] should be multiplied by the estimated BMI. [facility] CHEM PANEL AST 17 0 - 37 12/07/2015 [facility] CHEM PANEL ALT 13 0 - 65 12/07/2015 [facility] CHEM PANEL Bili Total 0.9 0.2 - 1.3 12/07/2015 [facility] CHEM PANEL Alk Phos 42 39 - 136 12/07/2015 [facility] CHEM PANEL A/G Ratio 0.7 0.7 - 1.6 12/07/2015 [facility] CHEM PANEL Total Protein 6.0 6.4 - 8.4 12/07/2015 [facility] CHEM PANEL B/C Ratio 14 6 - 25 12/07/2015 [facility] CHEM PANEL Globulin 3.6 2.7 - 4.2 12/07/2015 [facility] CHEM PANEL Albumin Lvl 2.4 3.5 - 5.0 12/07/2015 [facility] CHEM PANEL Calcium Lvl 8.0 8.5 - 10.5 12/07/2015 [facility] CHEM PANEL Potassium Lvl 3.3 3.5 - 5.1 12/07/2015 [facility] CHEM PANEL Sodium Lvl 138 135 - 145 12/07/2015 [facility] CHEM PANEL CO2 28 24 - 32 12/07/2015 [facility] CHEM PANEL Chloride Lvl 101 95 - 109 12/07/2015 [facility] CHEM PANEL AGAP 12.3 10.0 - 20.0 12/07/2015 [facility] CHEM PANEL Glucose Lvl 99 70 - 99 12/07/2015 [facility] CHEM PANEL Creatinine Lvl 1.10 0.50 - 1.40 12/07/2015 [facility] CHEM PANEL BUN 15 7 - 22 12/07/2015 [facility] HEMATOLOGY Monocytes # 0.7 0.0 - 0.8 12/07/2015 [facility] HEMATOLOGY Eosinophils # 0.3 0.0 - 0.5 12/07/2015 [facility] HEMATOLOGY Lymphocytes # 1.3 1.0 - 5.5 12/07/2015 [facility] HEMATOLOGY Eosinophils 4.0 0.0 - 4.0 12/07/2015 [facility] HEMATOLOGY Basophils 0.6 0.0 - 1.0 12/07/2015 [facility] HEMATOLOGY Segs-Bands # 4.8 1.5 - 8.1 12/07/2015 [facility] HEMATOLOGY Lymphocytes 17.9 20.0 - 40.0 12/07/2015 [facility] HEMATOLOGY Monocytes 9.3 2.0 - 12.0 12/07/2015 [facility] HEMATOLOGY Segs 68.2 45.0 - 75.0 12/07/2015 [facility] HEMATOLOGY RDW 12.6 11.5 - 14.5 12/07/2015 [facility] HEMATOLOGY Platelet 118 133 - 450 12/07/2015 [facility] HEMATOLOGY MPV 9.1 7.4 - 10.4 12/07/2015 [facility] HEMATOLOGY MCH 29.3 27.0 - 31.0 12/07/2015 [facility] [facility]EM[facility] MCHC 34.4 32.0 - 36.0 12/07/2015 [facility] HEMATOLOGY Hgb 10.1 12.0 - 16.0 12/07/2015 [facility] HEMATOLOGY Hct 29.4 36.0 - 48.0 12/07/2015 [facility] HEMATOLOGY MCV 85.2 80.0 - 98.0 12/07/2015 [facility] HEMATOLOGY RBC 3.45 4.20 - 5.40 12/07/2015 [facility] HEMATOLOGY WBC 7.0 3.7 - 10.4 12/07/2015 [facility] CHEM PANEL Uric Acid 5.6 2.5 - 7.0 12/06/2015 [facility] CHEM PANEL Bili Total 0.6 0.2 [...] A/G Ratio 0.7 0.7 - 1.6 12/06/[address] [facility] MCH 29.2 27.0 - 31.0 12/06/2015 [facility] HEMATOLOGY Hct 32.7 36.0 - 48.0 12/06/2015 [facility] HEMATOLOGY RBC 3.82 4.20 - 5.40 12/06/2015 [facility] HEMATOLOGY MCV 85.6 80.0 - 98.0 12/06/2015 [facility] HEMATOLOGY Hgb 11.2 12.0 - 16.0 12/06/2015 [facility] HEMATOLOGY MPV 8.8 7.4 - 10.4 12/06/[address] [facility] RDW 13.0 11.5 - 14.5 12/06/[address] [facility] Platelet 127 133 - 450 12/06/[address] [facility] MCHC 34.1 32.0 - 36.0 12/06/2015 [facility] HEMATOLOGY WBC 8.6 3.7 - 10.4 12/06/2015 [facility] HEMATOLOGY Basophils # 0.1 0.0 - 0.2 12/06/2015 [facility] HEMATOLOGY Eosinophils # 0.3 0.0 - 0.5 12/06/2015 [facility] HEMATOLOGY Monocytes # 0.6 0.0 - 0.8 12/06/[address] [facility] Lymphocytes # 1.8 1.0 - 5.5 12/06/2015 [facility] HEMATOLOGY Segs 68.2 45.0 - 75.0 12/06/2015 [facility] HEMATOLOGY Basophils 1.1 0.0 - 1.0 12/06/[address] [facility] Monocytes 6.5 2.0 - 12.0 12/06/2015 [facility] HEMATOLOGY Segs-Bands # 5.8 1.5 - 8.1 12/06/[address] [facility] Eosinophils 3.2 0.0 - 4.0 12/06/[address] [facility] Lymphocytes 21.0 20.0 - 40.0 12/06/2015 [facility] BLOOD BANK RESULTS Antibody Scrn Negative (12/05/15 1:43 PM) 12/05/2015 [facility] BLOOD BANK RESULTS ABO/Rh A POS 12/05/2015 [facility] HEMATOLOGY PTT 27.8 22.9 - 35.8 12/04/2015 [facility] HEMATOLOGY INR 0.99 0.85 - 1.17 12/04/2015 [facility] HEMATOLOGY PT 13.4 12.0 - 14.7 12/04/2015 [facility] HEMATOLOGY Basophils # 0.1 0.0 - 0.2 12/03/2015 [facility] Pathology Reports No Data Provided for This Section Diagnostic Reports Report Value Date Source Hip 2/3 views uni DX Patient Name: SANDOVAL TOLBERT : 1950; Age: 65 years y/o Female MR: [id number] Study: 2 view examination of the left hip dated 12/07/2015. Clinical Indication: Fracture; Comparison: 12/03/2015 External rah overlie the lateral soft tissues of the left hip. There are now 3 cancellus screws through a left femoral neck fracture. Bones in near anatomic alignment. No dislocation. SL: [id number] 12/07/2015 [facility] Hip 2/3 views uni DX Study: Left hip, 11 views Clinical Indication: left hip fracture Comparison: X-ray of the pelvis from 12/03/2015 Findings/impression: Multiple, nondiagnostic intraoperative fluoroscopic views of the left hip show postoperative changes of screw fixation across a transcervical left femoral neck fracture with apposition of the major fracture fragments. SL: [id number] 12/05/2015 [facility] Femur series DX Femur series DX CLINICAL HISTORY: Pain from a fall FINDINGS/IMPRESSION: AP and lateral views of the left femur reveal minimally displaced displaced femoral neck fracture with mild override of the fracture fragments. No significant degenerative change is present. Mild generalized osteopenia. SL: [id number] 12/03/2015 [facility] Chest 1view DX Patient Name: SANDOVAL TOLBERT : 1950; Age: 65 years y/o Female MR: [id number] Study: Chest 1view DX 12/03/2015 3:48 PM CDT Ordering Physician: Clinical Indication: Shortness of Breath; Comparison: None Chest one view Mild dependent atelectasis on the left. Right lung clear. Heart size normal. Mediastinal contours normal. No pleural effusion or pneumothorax. No obvious osseous abnormality. IMPRESSION: Mild left lower lobe atelectasis. SL: [id number] 12/03/2015 [facility] Pelvis AP DX Pelvis AP DX CLINICAL HISTORY: Fracture FINDINGS/IMPRESSION: Single AP view of the pelvis is submitted for review. Minimally displaced fracture of the left femoral neck is noted. Mild generalized osteopenia. SL: [id number] 12/03/2015 [facility] Consultation Notes No Data Provided for This Section Discharge Summaries No Data Provided for This Section History and Physicals No Data Provided for This Section Vital Signs Vital Sign Value Date Comments Source Temperature Oral (F) 98.3 F 12/08/2015 [facility] Heart Rate 71 12/08/2015 [facility] Respitory Rate 14 12/08/2015 [facility] Systolic (mm Hg) 124 12/08/2015 [facility] Diastolic (mm Hg) 80 12/08/2015 [facility] Systolic (mm Hg) 120 12/08/2015 [facility] Diastolic (mm Hg) 69 12/08/2015 [facility] Respitory Rate 16 12/08/2015 [facility] Temperature Oral (F) 98.1 F 12/08/2015 [facility] Heart Rate 59 12/08/2015 [facility] Respitory Rate 16 12/08/2015 [facility] Systolic (mm Hg) 101 12/08/2015 [facility] Diastolic (mm Hg) 63 12/08/2015 [facility] Heart Rate 54 12/08/2015 [facility] Temperature Oral (F) 98.1 F 12/08/2015 [facility] Height 162.56 cm 12/04/2015 [facility] Weight 79.091 12/04/2015 [facility] BMI Calculated 29.93 12/04/2015 [facility] BMI Calculated 28.38 12/03/2015 [facility] Height 162.56 cm 12/03/2015 [facility] Weight 75 12/03/2015 [facility] Encounters Location Location Details Encounter Type Encounter Number Reason For Visit Attending Provider ADM Date DC Date Status Source [facility] Inpatient [id number] Dorian Hilda 12/03/2015 12/08/2015 [facility] [place] [id number] [facility] 12/09/2015 01/08/2016 [facility] [place] Procedures No Data Provided for This Section [...] sessions for when weight bearing progressed.) 12/08/2015 [facility] Plan of Care No Data Provided for This Section Social History Social History Date Source Social History TypeResponse Smoking Status Unknown if ever smoked; Exposure to Tobacco Smoke None; Cigarette Smoking Last 365 Days No; Reg Smoking Cessation Counseling No 12/04/2015 [facility] [place] Social History TypeResponse Smoking Status Unknown if ever smoked; Exposure to Tobacco Smoke None; Cigarette Smoking Last 365 Days No; Reg Smoking Cessation Counseling No 12/04/2015 [facility] Family History No Data Provided for This Section Advance Directives No Data Provided for This Section Functional Status No Data Provided for This Section
[2018-12-22] MEDS: SODIUM CHLORIDE 0.9% 1000ML 1,000 ML IV SCH ×2 (09:45→20:23)
[2018-12-22] MEDS ORDERED: MORPHINE SULFATE INJ 4 MG/ML INJ 1ML IV PRN (09:45)
[2018-12-22] MEDS: PANTOPRAZOLE 40 MG 10ML VIAL IV SCH (09:45)
[2018-12-22] MEDS: PIPER-TAZ 3.375 GM 50 ML IV SCH ×3 (09:45→17:47)
--- NOTE | 2018-12-22 10:50 | NUR ---
Received patient from ER, lying in bed with eyes open. Respiration even and unlabored without SOB. Family member at bedside. Call light in reach.
[2018-12-22 11:21] VITALS: BP 137/70
[2018-12-22 11:57] VITALS: BP 137/70
[2018-12-22 12:00] VITALS: BP 137/70
--- NOTE | 2018-12-22 12:14 | History and Physical ---
CHIEF COMPLAINT: This is a 68-year-old female, who comes in with abdominal pain. HISTORY OF PRESENTING ILLNESS: The patient was seen in the clinic from two days ago prior to this admission. The patient was sent for abdominal ultrasound for right upper quadrant pain. The patient's ultrasound came back with acute cholecystitis. The patient was asked to come to the ER to get admitted. The patient was willing to wait until Sunday to get the surgery done, but today the patient's abdominal pain got out of proportion. The patient comes in here for abdominal pain and for acute cholecystitis with possible surgery needed for acute cholecystitis. PAST MEDICAL HISTORY: History of hypertension, history of hypothyroidism, history of vitamin D deficiency, history of malignant neoplasm of the right breast, history of adjustment of anxiety, history of osteoporosis and history of gouty arthritis. Other medical history includes migraines. MEDICATIONS: Medicines she takes at home are anastrozole 1 mg once a day, indomethacin 50 mg 3 times a day as needed, gabapentin 100 mg 3 times a day, allopurinol 100 mg once a day, topiramate 25 mg once at nighttime, levothyroxine 112 mcg daily, zolpidem 10 mg at nighttime, diltiazem ER 180 mg once a day, and losartan 50 mg once a day. ALLERGIES: THE PATIENT'S ALLERGIES NKDA. PAST SURGICAL HISTORY: Hysterectomy and also breast surgery for left breast cancer. HOSPITALIZATION: None. Father and mother are both diseased. No pertinent history at this time. SOCIAL HISTORY: No EtOH. No IV drug abuse. REVIEW OF SYSTEMS: Positive for abdominal pain. No chest pain. No shortness of breath. No nausea or vomiting. No diarrhea. Admits heartburn. Positive for difficulty sleeping. No diplopia. No blurry vision. PHYSICAL EXAMINATION: GENERAL: The patient is alert and oriented x3. HEENT: Normocephalic, atraumatic. Pupils are reactive to light and accommodation. No icterus present. CVS: S1, S2 normal. Regular rate and rhythm. ABDOMEN: Tender in the epigastrium. EXTREMITIES: No clubbing, no cyanosis, no edema. LABORATORY DATA: On lab values, the patient's white count is within normal limits. As mentioned above, the ultrasound from the outside facility in the [facility] shows acute cholecystitis. The plan would be to consult Dr. Alina Mitchell for possible lap cholecystectomy. We will review the ultrasound again. Continue to monitor the patient for pain management with morphine 4 mg as needed with Zofran for nausea. Further recommendation per clinical course. The patient will be kept n.p.o. past midnight for possible surgery in the morning or if Dr. Rachel Mitchell wishes to do the surgery today. She is n.p.o. at this time. Further recommendation per clinical course. We will continue to monitor the patient. MD SANYA Jones/MODL /[id number]
[2018-12-22 16:00] VITALS: BP 134/70
[2018-12-22] MEDS ORDERED: ACETAMINOPHEN 1000 MG/100 ML IV PRN (16:45)
--- NOTE | 2018-12-22 16:46 | NUR ---
CALLED DR. FORTUNE FOR IV PAIN MEDICATION SINCE PT IS NPO. ORDER GIVEN AND ASKED TO CALL DR. RUANO TO SEE IF PT NEEDED TO BE KEEP NPO. A CALL IS ALREADY OUT TO DR. RUANO. LAST CALL STATED HE WOULD BE ROUNDING TONIGHT.
--- NOTE | 2018-12-22 19:00 | NUR ---
Report given to night nurse. Respiration even and unlabored without SOB.
[2018-12-22 19:54] VITALS: BP 105/59
[2018-12-22 21:00] VITALS: BP 105/59
[2018-12-22] MEDS: KETOROLAC TROMETHAMINE 30 MG/ML VIAL IV PRN (21:10)
--- NOTE | 2018-12-22 22:27 | NUR ---
Dr. Travis Mitchell here for rounding.
--- NOTE | 2018-12-22 22:40 | NUR ---
New orders received from Dr. Travis Mitchell.
[2018-12-22] MEDS ORDERED: NON-FORMULARY MEDICATION (Zolpidem Tartrate 10 MG) PO PRN (22:45)
[2018-12-22] MEDS: GABAPENTIN 100 MG CAP PO SCH (23:15)
[2018-12-22] MEDS: ZOLPIDEM TARTRATE 10 MG TAB PO PRN (23:15)
[2018-12-23] VITALS (8 sets, daily range): BP systolic 105–162; BP diastolic 62–88
[2018-12-23] MEDS: PIPER-TAZ 3.375 GM 50 ML IV SCH ×4 (00:31→18:12)
[2018-12-23] MEDS: SODIUM CHLORIDE 0.9% 1000ML 1,000 ML IV SCH ×4 (04:55→18:42)
[2018-12-23] MEDS: GABAPENTIN 100 MG CAP PO SCH ×3 (09:00→21:55)
[2018-12-23] MEDS: KETOROLAC TROMETHAMINE 30 MG/ML VIAL IV PRN (09:49)
--- NOTE | 2018-12-23 09:51 | Progress Note ---
DATE: SUBJECTIVE: The patient is a 68-year-old female, who comes in with acute cholecystitis. The patient is scheduled for surgery today. Has been n.p.o. The patient's headache has been resolved with the medications being given to her. Currently on Zosyn, morphine, zolpidem, and pantoprazole. No chest pains. No shortness of breath. PHYSICAL EXAMINATION: GENERAL: The patient is alert and oriented x3. VITAL SIGNS: Temperature is 97.3, pulse of 43, respirations of 18, blood pressure is 105/62, pulse oximetry of 94%. HEENT: Normocephalic, atraumatic. No icterus present. CVS: S1, S2 normal. Regular rate and rhythm. ABDOMEN: Tender in the right upper quadrant. EXTREMITIES: No clubbing, no cyanosis, no edema. IMAGING: From outside show acute cholecystitis. ASSESSMENT: 1. Acute cholecystitis, on Zosyn. 2. The patient is scheduled for a laparoscopic cholecystectomy this afternoon with Dr. Chidi Mitchell. Further recommendation per clinical course. We will continue to follow the patient postoperatively. No new changes and medicines were reconciled and looked into. MD SANYA Jones/MODL /[id number]
[2018-12-23] MEDS ORDERED: BUPIVACAINE 0.25%/EPI 30ML SDV INJ ONE (12:37)
[2018-12-23] MEDS ORDERED: HYDROCODONE/APAP 7.5MG-325MG 1 EA TAB PO PRN (14:15)
[2018-12-23] MEDS ORDERED: ACETAMINOPHEN 1000 MG/100 ML IV PRN (14:15)
[2018-12-23] MEDS ORDERED: HYDROMORPHONE 1MG/1ML INJ IV PRN (14:15)
[2018-12-23] MEDS ORDERED: ONDANSETRON HCL INJ 2MG/ML 2ML 2 MG/ML VIAL ONE (14:27)
[2018-12-23] MEDS ORDERED: KETOROLAC TROMETHAMINE 30 MG/ML VIAL ONE (14:27)
[2018-12-23] MEDS ORDERED: SEVOFLURANE INHAL SOLN 250 ML PEN BTL ONE (14:27)
[2018-12-23] MEDS ORDERED: PROPOFOL IV EMULSION 10 MG/ML 20 ML VIAL ONE (14:27)
[2018-12-23] MEDS ORDERED: ROCURONIUM BROMIDE 10 MG/ML 5ML VIAL ONE (14:27)
[2018-12-23] MEDS ORDERED: LIDOCAINE HCL 2% LOCAL INJ 5 ML SDV VIAL INJ ONE (14:27)
[2018-12-23] MEDS ORDERED: DEXAMETHASONE SOD PHOS INJ 4 MG/ML VIAL ONE (14:27)
[2018-12-23] MEDS ORDERED: MIDAZOLAM HCL 2 MG/2 ML VIAL ONE (14:59)
[2018-12-23] MEDS ORDERED: FENTANYL CITRATE/PF 100MCG/2 ML INJ ONE (14:59)
--- NOTE | 2018-12-23 16:09 | Operative Report ---
DATE OF PROCEDURE: 12/23/2018 SURGEON: Chidi Mitchell MD PREOPERATIVE DIAGNOSIS: Cholecystitis and cholelithiasis. POSTOPERATIVE DIAGNOSIS: Cholecystitis and cholelithiasis. OPERATION PERFORMED: Laparoscopic cholecystectomy. SHALE PROCESSING TECHNICIAN: Dr. Jose R Mitchell. ANESTHESIA: General. COMPLICATIONS: None. ESTIMATED BLOOD LOSS: Minimal. DESCRIPTION OF PROCEDURE: With the patient lying in bed in the supine position, under good general endotracheal anesthesia, the abdomen was prepped with Betadine solution and draped in the usual manner. A Veress needle was introduced into the right upper quadrant and pneumoperitoneum was established without any difficulty. The 5 mm trocar was placed in the right subcostal region and a 5 mm video laparoscope was placed into the intraabdominal cavity. Video laparoscopy at this point revealed some adhesions to the right lower quadrant, but the subumbilical area was free of any adhesions. An 11 mm trocar was placed into the umbilicus and a 10 mm video laparoscope was placed into the intraabdominal cavity. Under direct vision, two more 5 mm trocars were placed in the right subcostal region. Laparoscopy revealed other than the previously described adhesions, the gallbladder was thick-walled, contained numerous stones and had multiple adhesions to the stomach and transverse colon. The rest of the abdominal exploration was otherwise within normal limits. The adhesions to the gallbladder were then slowly and carefully taken down. The peritoneum overlying the neck of the gallbladder was then opened and the cystic duct was identified. The cystic duct was then followed to its junction with the common duct. The cystic duct was then circumferentially dissected away from the common duct, doubly clipped and divided. The cystic artery was similarly doubly clipped and divided. The gallbladder was then slowly and carefully taken off the liver bed. There was a lot of fibrosis of the liver bed from the chronic inflammatory process. Nonetheless, the gallbladder was totally taken off the liver bed and perfect hemostasis was ascertained. The gallbladder was then grasped through the umbilical port and removed without any difficulty. Video laparoscopy was then again carried out. The liver bed was found to be perfectly dry. All the excess fluid was aspirated. The pneumoperitoneum was evacuated and all the trocars were removed under direct vision. The midline fascia at the umbilicus was then closed with a [id number] 0 Vicryl. The layers were infiltrated on the way out with solution of 0.25% Marcaine. Subcutaneous tissue was approximated with 3-0 Vicryl and the skin was closed with subcuticular 5-0 Vicryl. Benzoin, Steri-Strips and Band-Aids were applied. The sponge, lap, and needle count were correct. The patient tolerated the procedure well and returned to the recovery room in stable condition. MD EMELYN Hawk/ELIF /[id number]
--- NOTE | 2018-12-23 19:10 | NUR ---
Bedside report completed with morning nurse. Pt alert and orient to name. Lying in bed HOB 45 degrees. Pain at tolerable level per patient. Bandages x4 in place on abd trocar sites, no s/s of infection. Call mendoza within reach. Family/friend at bedside.
[2018-12-23] MEDS: ZOLPIDEM TARTRATE 10 MG TAB PO PRN (21:55)
[2018-12-24 00:10] VITALS: BP 146/68
[2018-12-24] MEDS: PIPER-TAZ 3.375 GM 50 ML IV SCH ×3 (00:10→12:01)
[2018-12-24 04:25] VITALS: BP 138/78
[2018-12-24 04:59] LABS: BASOPHILS % 0.1 % (0.0-1.0); HEMATOCRIT 33.3 % (34.2-44.1); HEMOGLOBIN 11.2 g/dL (12.0-16.0); LYMPHOCYTES # (AUTO) 0.6 (1.0-3.2); LYMPHOCYTES % 5.6 % (18.0-39.1); MEAN CORPUSCULAR HEMOGLOBIN 29.4 pg (28-32); MEAN CORPUSCULAR HGB CONC 33.6 g/dL (31-35); MEAN CORPUSCULAR VOLUME 87.4 fL (81-99); MONOCYTES # (AUTO) 0.5 (0.2-0.8); MONOCYTES % 4.2 % (4.4-11.3); NEUTROPHILS # (AUTO) 10.2 (2.1-6.9); NEUTROPHILS % 89.7 % (38.7-80.0); PLATELET COUNT 154 x10e3/uL (140-360); RED BLOOD COUNT 3.81 x10e6/uL (3.6-5.1); RED CELL DISTRIBUTION WIDTH 11.7 % (11.7-14.4)
[2018-12-24 05:22] LABS: ALBUMIN 2.7 g/dL (3.5-5.0); ALBUMIN/GLOBULIN RATIO 0.8 (0.8-2.0); ANION GAP 9.9 mmol/L (8-16); CALCIUM 8.8 mg/dL (8.4-10.2); CREATININE, SERUM 1.06 mg/dL (0.57-1.11); POTASSIUM 3.9 mmol/L (3.5-5.1)
[2018-12-24] MEDS: SODIUM CHLORIDE 0.9% 1000ML 1,000 ML IV SCH ×2 (06:00→10:06)
--- NOTE | 2018-12-24 06:55 | NUR ---
Report given to morning nurse. Pt sitting up in bed. No acute distress noted.
[2018-12-24 07:19] VITALS: BP 120/64
[2018-12-24 08:00] VITALS: BP 120/64
[2018-12-24] MEDS ORDERED: DILTIAZEM HCL 180 MG CAP ER PO SCH (09:00)
[2018-12-24] MEDS ORDERED: LOSARTAN POTASSIUM 25 MG TAB PO SCH (09:00)
[2018-12-24] MEDS: PANTOPRAZOLE 40 MG 10ML VIAL IV SCH (09:14)
[2018-12-24] MEDS: GABAPENTIN 100 MG CAP PO SCH (09:14)
--- NOTE | 2018-12-24 10:39 | Progress Note ---
DATE: SUBJECTIVE: The patient is here for acute cholecystitis. The patient is status post cholecystectomy. No complaints. Has been walking on the floors. The patient has been tolerating clears and plus passing gas. No chest pain or shortness of breath. No nausea, vomiting, or diarrhea. OBJECTIVE: VITAL SIGNS: Temperature is 97.6, pulse of 74, respirations of 16, blood pressure is 138/78, and pulse oximetry of 94%. HEENT: Normocephalic, atraumatic. No icterus present. CVS: S1, S2 normal. Regular rate and rhythm. ABDOMEN: Nontender, nondistended. EXTREMITIES: No clubbing, no cyanosis, no edema. Surgical scars clean, clear, and dry. ASSESSMENT: 1. Acute cholecystitis, status post laparoscopic cholecystectomy. 2. History of breast cancer. 3. Hypertension. 4. Hyperlipidemia. PLAN: Continue monitoring the patient. Advance diet. Okay to discharge from medicine standpoint of view. MD SANYA Jones/MARCUSL /[id number]
[2018-12-24 11:11] VITALS: BP 134/68
[2018-12-24] MEDS ORDERED: NORCO 7.5-3251 EACH PO (12:43)
--- NOTE | 2018-12-24 13:07 | NUR ---
Patient chose to walk to lobby without assistance of wheelchair. Escorted by [facility]. Patient in no distress. Bruising noted to RLQ. Dr. Mitchell aware. Follow up arranged. Education provided. Patient verbalized understanding.
== END 2018-12-24 13:07 | disposition home or self-care (01) ==
LOC: ER 07:33 → ERHOLD 09:33 → INTOOBSV 09:33 → MED/SURG2 10:50
PROVIDERS: ADMIT Family Medicine; ATTEND Family Medicine
DX: K80.00 Calculus of gallbladder with acute cholecystitis without obstruction (principal); N30.00 Acute cystitis without hematuria; I12.9 Hypertensive chronic kidney disease with stage 1 through stage 4 chronic kidney disease, or unspecified chronic kidney disease; N18.9 Chronic kidney disease, unspecified; M10.9 Gout, unspecified; E03.9 Hypothyroidism, unspecified; R51 Headache; Z85.3 Personal history of malignant neoplasm of breast
CPT/HCPCS: 36415 ×2; 47562; 71045; 80053 ×2; 81001; 82150; 82550; 82553; 83690; 84484; 85025 ×2; 85610; 85730; 87086; 88309; 93005; 99284; C1766; C9113 ×2; G0378 ×3; J0131; J1100; J1170; J1885 ×2; J2001; J2250; J2270 ×2; J2405 ×2; J2543 ×3; J2704; J3010; J7030 ×3; 88304

== ENCOUNTER → 2020-01-30 | Outpatient (CLI) | payer MEDICARE ==
--- NOTE | 2020-01-30 16:11 | Diagnostic Imaging Report ---
Renal ultrasound. Clinical History: Chronic kidney disease. Comparison Study: Ultrasound abdomen 12/20/2018. Findings: The right kidney measures 10cm and left kidney measures 9.5 cm. There is no evidence of hydronephrosis, nephrolithiasis or renal mass on either side. The echogenicity is normal bilaterally. The cortical thickness on the right side is 1.5 cm and on the left side is 0.8 cm. Both arterial and venous flow is documented to both kidneys. The bladder is unremarkable. Bilateral ureteral jets are seen. Prevoid volume measures 171 mL, post void volume measures 8 mL. Impression: Normal renal ultrasound. Signed by: Juan Majano on 01/30/2020 4:08 PM
== END ==
LOC: US 15:04
PROVIDERS: ATTEND Internal Medicine Nephrology
DX: N18.9 Chronic kidney disease, unspecified (principal)
CPT/HCPCS: 76770; 76857

== ENCOUNTER → 2020-03-31 | Day surgery (SDC) | payer MEDICARE ==
[2020-03-29 11:48] LABS: BASOPHILS # (AUTO) 0.1 (0.0-0.1); BASOPHILS % 1.2 % (0.0-1.0); EOSINOPHILS # (AUTO) 0.2 (0.0-0.4); HEMATOCRIT 37.9 % (34.2-44.1); HEMOGLOBIN 12.3 g/dL (12.0-16.0); LYMPHOCYTES # (AUTO) 1.6 (1.0-3.2); LYMPHOCYTES % 27.5 % (18.0-39.1); MEAN CORPUSCULAR HGB CONC 32.5 g/dL (31-35); MEAN CORPUSCULAR VOLUME 86.1 fL (81-99); MONOCYTES # (AUTO) 0.5 (0.2-0.8); MONOCYTES % 8.4 % (4.4-11.3); NEUTROPHILS # (AUTO) 3.4 (2.1-6.9); NEUTROPHILS % 58.6 % (38.7-80.0); PLATELET COUNT 157 x10e3/uL (140-360); RED CELL DISTRIBUTION WIDTH 14.6 % (11.7-14.4)
[2020-03-29 12:10] LABS: ANION GAP 15.3 mmol/L (8-16); CALCIUM 9.1 mg/dL (8.4-10.2); CREATININE, SERUM 1.31 mg/dL (0.57-1.11); POTASSIUM 4.3 mmol/L (3.5-5.1)
[~2020-03-31] MED LIST changes: +FLOMAX0.4 MG PO; +LIDOCAINE HCL 2% LOCAL INJ 5 ML SDV VIAL INJ ONE; +METOCLOPRAMIDE10 MG PO; +ONDANSETRON2 MG/1 ML PO; +PROPOFOL IV EMULSION 10 MG/ML 20 ML VIAL ONE; +PROTONIX20 MG PO; +SUCRALFATE1 GM PO; +TOPIRAMATE25 MG PO
[2020-03-31 14:10] VITALS: BP 132/82
== END | disposition home or self-care (01) ==
LOC: OR 09:41
PROVIDERS: ATTEND Surgery
DX: K21.00 Gastro-esophageal reflux disease with esophagitis, without bleeding (principal); C23 Malignant neoplasm of gallbladder; K44.9 Diaphragmatic hernia without obstruction or gangrene; T18.2XXA Foreign body in stomach, initial encounter; I12.9 Hypertensive chronic kidney disease with stage 1 through stage 4 chronic kidney disease, or unspecified chronic kidney disease; N18.9 Chronic kidney disease, unspecified; R00.1 Bradycardia, unspecified; X58.XXXA Exposure to other specified factors, initial encounter; Z85.3 Personal history of malignant neoplasm of breast
CPT/HCPCS: 36415; 43239; 71046; 80048; 85025; 88305; 93005; J2001; J2704; U0002

== ENCOUNTER → 2020-04-19 | Outpatient (CLI) | payer MEDICARE ==
[~2020-04-19] MED LIST changes: -LIDOCAINE HCL 2% LOCAL INJ 5 ML SDV VIAL INJ ONE; -PROPOFOL IV EMULSION 10 MG/ML 20 ML VIAL ONE
== END ==
LOC: DX 08:34
PROVIDERS: ATTEND Surgery
DX: Z01.812 Encounter for preprocedural laboratory examination (principal); Z20.822 Contact with and (suspected) exposure to COVID-19; K21.9 Gastro-esophageal reflux disease without esophagitis
CPT/HCPCS: 74246; U0002

== ENCOUNTER → 2020-05-13 | Outpatient (CLI) | payer MEDICARE ==
[~2020-05-13] MED LIST changes: +DIATRIZOATE MEGL/DIATRIZOA SOD 30 ML BTL PO ONE; +IOPAMIDOL 370 MG/ML 200 ML INFUS..BTL INJ ONE; +SODIUM CHLORIDE 0.9% 500ML 500 ML ONE; +SODIUM CHLORIDE 0.9% 50ML 50 ML ONE
[2020-05-13 17:04] LABS: CREATININE, SERUM 1.31 mg/dL (0.57-1.11)
== END ==
LOC: CT 16:17
PROVIDERS: ATTEND Family Medicine
DX: R10.0 Acute abdomen (principal)
CPT/HCPCS: 36415; 74177; 82565; 84520; 96360; J7040; Q9967

== ENCOUNTER 2020-05-20 13:35 | Emergency (ER) | payer MEDICARE ==
[~2020-05-20] VITALS: Ht 162.6 cm; Wt 79.4 kg
[~2020-05-20 13:35] MED LIST changes: -DIATRIZOATE MEGL/DIATRIZOA SOD 30 ML BTL PO ONE; -IOPAMIDOL 370 MG/ML 200 ML INFUS..BTL INJ ONE; -SODIUM CHLORIDE 0.9% 500ML 500 ML ONE; -SODIUM CHLORIDE 0.9% 50ML 50 ML ONE
[2020-05-20 14:22] LABS: BASOPHILS # (AUTO) 0.1 (0.0-0.1); BASOPHILS % 0.9 % (0.0-1.0); EOSINOPHILS # (AUTO) 0.2 (0.0-0.4); EOSINOPHILS % 2.5 % (0.0-6.0); HEMATOCRIT 37.7 % (34.2-44.1); HEMOGLOBIN 12.1 g/dL (12.0-16.0); LYMPHOCYTES # (AUTO) 1.1 (1.0-3.2); MEAN CORPUSCULAR HEMOGLOBIN 28.1 pg (28-32); MEAN CORPUSCULAR HGB CONC 32.1 g/dL (31-35); MEAN CORPUSCULAR VOLUME 87.7 fL (81-99); MONOCYTES # (AUTO) 0.5 (0.2-0.8); MONOCYTES % 6.5 % (4.4-11.3); NEUTROPHILS # (AUTO) 5.9 (2.1-6.9); NEUTROPHILS % 75.7 % (38.7-80.0); PLATELET COUNT 228 x10e3/uL (140-360); RED CELL DISTRIBUTION WIDTH 12.6 % (11.7-14.4)
[2020-05-20 14:34] LABS: INR 0.9; PROTHROMBIN TIME 12.7 seconds (11.9-14.5)
[2020-05-20 15:02] LABS: ALBUMIN 3.7 g/dL (3.5-5.0); ALBUMIN/GLOBULIN RATIO 0.9 (0.8-2.0); ANION GAP 14.7 mmol/L (8-16); CALCIUM 9.6 mg/dL (8.4-10.2); CREATININE, SERUM 1.42 mg/dL (0.57-1.11); POTASSIUM 3.7 mmol/L (3.5-5.1)
[2020-05-20 18:19] LABS: BODY FLUID APPEARANCE CLEAR; BODY FLUID COLOR YELLOW; BODY FLUID TYPE PERITONEAL
[2020-05-20 18:24] LABS: RBC,BODY FLUID 25 cells/uL; WBC,BODY FLUID 60 cells/uL
[2020-05-20 18:41] LABS: EOSINOPHILS,BODY FLUID 3 %; LYMPHOCYTES,BODY FLUID 2 %; MONO/MACROPHG,BODY FLUID 66 %; NEUTROPHILS,BODY FLUID 27 %; OTHER CELLS,BODY FLUID 2 %
== END 2020-05-20 17:49 | disposition home or self-care (01) ==
LOC: ER 13:50
DX: R18.8 Other ascites (principal); C16.9 Malignant neoplasm of stomach, unspecified; I10 Essential (primary) hypertension; N18.9 Chronic kidney disease, unspecified; E03.9 Hypothyroidism, unspecified
CPT/HCPCS: 36415; 49083; 74470; 80053; 85025; 85610; 87070; 87205; 88112; 88305; 89051; 99283

== ENCOUNTER → 2020-06-08 | Outpatient (CLI) | payer MEDICARE ==
[~2020-06-08] MED LIST changes: +ALBUMIN 25% 12.5GM 50ML 100 ML IV ONE
== END ==
LOC: US 10:15
PROVIDERS: ATTEND Family Medicine
DX: C23 Malignant neoplasm of gallbladder (principal); C79.51 Secondary malignant neoplasm of bone; C78.6 Secondary malignant neoplasm of retroperitoneum and peritoneum; Z51.11 Encounter for antineoplastic chemotherapy; Z13.89 Encounter for screening for other disorder; R19.09 Other intra-abdominal and pelvic swelling, mass and lump; L27.1 Localized skin eruption due to drugs and medicaments taken internally; E07.9 Disorder of thyroid, unspecified; K21.00 Gastro-esophageal reflux disease with esophagitis, without bleeding; K44.9 Diaphragmatic hernia without obstruction or gangrene; E86.0 Dehydration
CPT/HCPCS: 49083

== ENCOUNTER 2020-06-22 06:18 | Emergency (ER) | payer MEDICARE ==
[~2020-06-22] VITALS: Ht 160 cm; Wt 54.4 kg
[~2020-06-22 06:18] MED LIST changes: -ALBUMIN 25% 12.5GM 50ML 0 ML IV ONE
[2020-06-22] MEDS ORDERED: ONDANSETRON HCL INJ 2MG/ML 2ML 2 MG/ML VIAL IV STA (06:58)
[2020-06-22] MEDS ORDERED: SODIUM CHLORIDE 0.9% 1000ML 1,000 ML IV SCH (07:00)
[2020-06-22] MEDS ORDERED: FENTANYL CITRATE/PF 100MCG/2 ML INJ IV PRN (07:00)
[2020-06-22 07:33] LABS: BASOPHILS % 0.6 % (0.0-1.0); EOSINOPHILS % 0.6 % (0.0-6.0); HEMATOCRIT 35.1 % (34.2-44.1); HEMOGLOBIN 11.6 g/dL (12.0-16.0); LYMPHOCYTES # (AUTO) 0.9 (1.0-3.2); LYMPHOCYTES % 13.5 % (18.0-39.1); MEAN CORPUSCULAR HEMOGLOBIN 27.9 pg (28-32); MEAN CORPUSCULAR VOLUME 84.4 fL (81-99); MONOCYTES # (AUTO) 0.6 (0.2-0.8); MONOCYTES % 9.7 % (4.4-11.3); NEUTROPHILS # (AUTO) 4.8 (2.1-6.9); NEUTROPHILS % 74.8 % (38.7-80.0); PLATELET COUNT 207 x10e3/uL (140-360); RED BLOOD COUNT 4.16 x10e6/uL (3.6-5.1)
[2020-06-22 08:41] LABS: ALBUMIN 2.9 g/dL (3.5-5.0); ALBUMIN/GLOBULIN RATIO 0.7 (0.8-2.0); CALCIUM 8.9 mg/dL (8.4-10.2); CREATININE, SERUM 1.17 mg/dL (0.57-1.11)
[2020-06-22] MEDS ORDERED: DIATRIZOATE MEGL/DIATRIZOA SOD 30 ML BTL PO ONE (08:58)
[2020-06-22] MEDS ORDERED: SODIUM CHLORIDE 0.9% 50ML 50 ML ONE (08:59)
[2020-06-22] MEDS ORDERED: IOPAMIDOL 370 MG/ML 200 ML INFUS..BTL INJ ONE (09:00)
[2020-06-22] MEDS ORDERED: LACTATED RINGER'S 1,000 ML INJ ONE (09:00)
[2020-06-22 09:20] LABS: INR 0.94; PROTHROMBIN TIME 13.1 seconds (11.9-14.5)
[2020-06-22 10:12] LABS: CLARITY,URINE CLEAR (CLEAR); COLOR,URINE YELLOW (YELLOW); LEUKOCYTE ESTERASE ,URINE SMALL (NEGATIVE); NITRITE,URINE NEGATIVE (NEGATIVE); PROTEIN,URINE DIPSTICK 1+ (NEGATIVE)
[2020-06-22 10:13] LABS: KETONES,URINE 1+ (NEGATIVE); URINE UROBILINOGEN 0.2 mg/dL (0.2 - 1)
[2020-06-22 10:22] LABS: BACTERIA,URINE FEW /HPF; EPITHELIAL CELLS,URINE FEW /LPF; RBC,URINE 0-5 /HPF (0-5); TRANSITIONAL EPI CELLS,URINE FEW
[2020-06-22 11:07] VITALS: BP 114/73
== END 2020-06-22 11:12 | disposition home or self-care (01) ==
LOC: ER 06:23
DX: R10.13 Epigastric pain (principal); R11.2 Nausea with vomiting, unspecified; R18.8 Other ascites; I10 Essential (primary) hypertension; G62.9 Polyneuropathy, unspecified; N18.9 Chronic kidney disease, unspecified; M10.9 Gout, unspecified; R94.31 Abnormal electrocardiogram [ECG] [EKG]; Z85.028 Personal history of other malignant neoplasm of stomach
CPT/HCPCS: 36415; 74177; 80053; 81001; 83690; 84484; 85025; 85610; 93005; 99284; J2405; J3010; J7030; J7121; Q9967

== ENCOUNTER → 2020-06-22 | Outpatient (CLI) | payer MEDICARE ==
[~2020-06-22] MED LIST changes: +ALBUMIN 25% 12.5GM 50ML 0 ML IV ONE; -ALBUMIN 25% 12.5GM 50ML 100 ML IV ONE
== END ==
LOC: US 11:14
PROVIDERS: ATTEND Internal Medicine
DX: C23 Malignant neoplasm of gallbladder (principal); C79.51 Secondary malignant neoplasm of bone; C78.6 Secondary malignant neoplasm of retroperitoneum and peritoneum; R19.09 Other intra-abdominal and pelvic swelling, mass and lump; L27.1 Localized skin eruption due to drugs and medicaments taken internally; E07.9 Disorder of thyroid, unspecified; K21.00 Gastro-esophageal reflux disease with esophagitis, without bleeding; K44.9 Diaphragmatic hernia without obstruction or gangrene; E86.0 Dehydration; Z51.11 Encounter for antineoplastic chemotherapy; Z13.89 Encounter for screening for other disorder
CPT/HCPCS: 49083

== ENCOUNTER 2020-07-06 12:20 | Inpatient (IN) | payer MEDICARE ==
[~2020-07-06] VITALS: Ht 160 cm; Wt 61.9 kg
[2020-07-06] MEDS ORDERED: SODIUM CHLORIDE 0.9% 1000ML 1,000 ML ONE (13:04)
[2020-07-06] MEDS ORDERED: SODIUM CHLORIDE 0.9% 1000ML 1,000 ML IV ONE (13:30)
[2020-07-06 13:34] LABS: BASOPHILS % 0.5 % (0.0-1.0); EOSINOPHILS % 0.3 % (0.0-6.0); HEMATOCRIT 35.3 % (34.2-44.1); HEMOGLOBIN 11.7 g/dL (12.0-16.0); LYMPHOCYTES % 14.8 % (18.0-39.1); MEAN CORPUSCULAR HEMOGLOBIN 28.4 pg (28-32); MEAN CORPUSCULAR HGB CONC 33.1 g/dL (31-35); MEAN CORPUSCULAR VOLUME 85.7 fL (81-99); MONOCYTES # (AUTO) 0.5 (0.2-0.8); MONOCYTES % 8.1 % (4.4-11.3); NEUTROPHILS # (AUTO) 4.9 (2.1-6.9); NEUTROPHILS % 75.8 % (38.7-80.0); PLATELET COUNT 179 x10e3/uL (140-360); RED BLOOD COUNT 4.12 x10e6/uL (3.6-5.1); RED CELL DISTRIBUTION WIDTH 15.3 % (11.7-14.4)
[2020-07-06 14:17] LABS: SALICYLATE < 5.0 mg/dL (0-30)
[2020-07-06 14:21] LABS: ALBUMIN 2.9 g/dL (3.5-5.0); ALBUMIN/GLOBULIN RATIO 0.8 (0.8-2.0); ANION GAP 27.9 mmol/L (8-16); CALCIUM 8.8 mg/dL (8.4-10.2); CREATININE, SERUM 1.52 mg/dL (0.57-1.11)
[2020-07-06 14:23] LABS: POTASSIUM 2.9 mmol/L (3.5-5.1)
[2020-07-06] MEDS ORDERED: POTASSIUM CHLORIDE 20MEQ/100ML 200 ML IV ONE (14:45)
[2020-07-06 15:28] LABS: CLARITY,URINE SL CLOUDY (CLEAR); COLOR,URINE AMBER (YELLOW); KETONES,URINE 1+ (NEGATIVE); LEUKOCYTE ESTERASE ,URINE NEGATIVE (NEGATIVE); NITRITE,URINE NEGATIVE (NEGATIVE); PROTEIN,URINE DIPSTICK 1+ (NEGATIVE); URINE UROBILINOGEN 1 mg/dL (0.2 - 1)
[2020-07-06] MEDS ORDERED: ONDANSETRON HCL INJ 2MG/ML 2ML 2 MG/ML VIAL IV NR (15:30)
[2020-07-06 15:31] LABS: AMPHETAMINES SCREEN,URINE NEGATIVE (NEGATIVE); BENZODIAZEPINES SCREEN,URINE NEGATIVE (NEGATIVE); PHENCYCLIDINE SCREEN,URINE NEGATIVE (NEGATIVE)
[2020-07-06 15:44] LABS: BACTERIA,URINE FEW /HPF; EPITHELIAL CELLS,URINE RARE /LPF; RBC,URINE 0-5 /HPF (0-5); WBC,URINE (MAN) 0-5 /HPF (0-5)
[2020-07-06] MEDS ORDERED: SODIUM CHLORIDE 0.9% 1000ML 1,000 ML IV STA (16:25)
[2020-07-06] MEDS ORDERED: POTASSIUM CHLORIDE 20 MEQ TAB CR PO NR (18:14)
[2020-07-06] MEDS ORDERED: ONDANSETRON HCL INJ 2MG/ML 2ML 2 MG/ML VIAL IV PRN (18:15)
[2020-07-06] MEDS ORDERED: MORPHINE SULFATE INJ 2 MG/ML SYR IV PRN (18:30)
[2020-07-06] MEDS: SODIUM CHLORIDE 0.9% 1000ML 1,000 ML IV SCH (18:43)
[2020-07-06 20:10] VITALS: BP 100/72
[2020-07-06] MEDS ORDERED: ZOLPIDEM TARTRATE 5 MG TAB PO PRN (21:00)
[2020-07-06 21:47] VITALS: BP 100/72
[2020-07-06 22:27] VITALS: BP 100/72
[2020-07-06] MEDS: METOCLOPRAMIDE HCL 10 MG/2ML VIAL IV SCH (23:55)
[2020-07-07] VITALS (7 sets, daily range): BP systolic 89–103; BP diastolic 65–78
[2020-07-07] MEDS ORDERED: PNEUMOCOCCAL VACCINE POLYVALENT 23 MCG/0.5 ML VIAL IM SCH (02:29)
[2020-07-07] MEDS: METOCLOPRAMIDE HCL 10 MG/2ML VIAL IV SCH ×3 (06:00→18:01)
[2020-07-07 06:17] LABS: BASOPHILS % 0.6 % (0.0-1.0); EOSINOPHILS # (AUTO) 0.1 (0.0-0.4); HEMATOCRIT 31.6 % (34.2-44.1); HEMOGLOBIN 10.4 g/dL (12.0-16.0); LYMPHOCYTES % 19.4 % (18.0-39.1); MEAN CORPUSCULAR HEMOGLOBIN 28.1 pg (28-32); MEAN CORPUSCULAR HGB CONC 32.9 g/dL (31-35); MEAN CORPUSCULAR VOLUME 85.4 fL (81-99); MONOCYTES # (AUTO) 0.5 (0.2-0.8); MONOCYTES % 9.2 % (4.4-11.3); NEUTROPHILS # (AUTO) 3.6 (2.1-6.9); NEUTROPHILS % 69.2 % (38.7-80.0); PLATELET COUNT 146 x10e3/uL (140-360); RED CELL DISTRIBUTION WIDTH 15.2 % (11.7-14.4)
[2020-07-07 06:36] LABS: ALBUMIN 2.4 g/dL (3.5-5.0); ALBUMIN/GLOBULIN RATIO 0.8 (0.8-2.0); ANION GAP 15.5 mmol/L (8-16); CREATININE, SERUM 1.23 mg/dL (0.57-1.11)
[2020-07-07 06:49] LABS: POTASSIUM 2.5 mmol/L (3.5-5.1)
[2020-07-07] MEDS ORDERED: POTASSIUM CHLORIDE 20 MEQ TAB CR PO ONE ×2 (07:20→12:00)
[2020-07-07] MEDS: PANTOPRAZOLE SOD 40 MG TABEC PO SCH (07:33)
[2020-07-07] MEDS: SODIUM CHLORIDE 0.9% 1000ML 1,000 ML IV SCH (08:20)
[2020-07-07] MEDS ORDERED: ONDANSETRON HCL INJ 2MG/ML 2ML 2 MG/ML VIAL IV PRN (19:15)
[2020-07-07] MEDS ORDERED: MORPHINE SULFATE INJ 4 MG/ML INJ 1ML IV PRN (19:15)
[2020-07-08] VITALS (8 sets, daily range): BP systolic 97–116; BP diastolic 63–87
[2020-07-08] MEDS: METOCLOPRAMIDE HCL 10 MG/2ML VIAL IV SCH ×4 (00:25→18:00)
[2020-07-08] MEDS: SODIUM CHLORIDE 0.9% 1000ML 1,000 ML IV SCH ×2 (00:25→12:50)
[2020-07-08] MEDS: PANTOPRAZOLE SOD 40 MG TABEC PO SCH (08:00)
[2020-07-08] MEDS ORDERED: POTASSIUM CHLORIDE 10MEQ EA PO ONE (19:30)
[2020-07-08] MEDS: KCL 40MEQ/0.9% SOD CHL 1,000 ML IV SCH (21:53)
[2020-07-09] VITALS (8 sets, daily range): BP systolic 96–105; BP diastolic 68–78
[2020-07-09] MEDS: METOCLOPRAMIDE HCL 10 MG/2ML VIAL IV SCH ×4 (06:00→17:07)
[2020-07-09 06:47] LABS: ANION GAP 9.2 mmol/L (8-16); CALCIUM 7.6 mg/dL (8.4-10.2); CREATININE, SERUM 1.04 mg/dL (0.57-1.11); POTASSIUM 4.2 mmol/L (3.5-5.1)
[2020-07-09] MEDS: PANTOPRAZOLE SOD 40 MG TABEC PO SCH (09:53)
[2020-07-09] MEDS: KCL 40MEQ/0.9% SOD CHL 1,000 ML IV SCH (10:44)
[2020-07-09] MEDS ORDERED: ONDANSETRON HCL 4 MG ORAL DISINTEGRATING TAB PO PRN (10:45)
[2020-07-09] MEDS ORDERED: BISACODYL 5 MG TAB EC PO PRN (14:00)
[2020-07-09] MEDS: DOCUSATE SODIUM 100 MG CAP PO SCH (17:07)
[2020-07-09] MEDS: SODIUM CHLORIDE 1 GM TAB PO SCH (17:07)
[2020-07-10] MEDS: METOCLOPRAMIDE HCL 10 MG/2ML VIAL IV SCH ×2 (00:02→05:19)
[2020-07-10 00:56] VITALS: BP 91/71
[2020-07-10 05:12] VITALS: BP 106/75
[2020-07-10 06:38] LABS: ANION GAP 12.2 mmol/L (8-16); BLOOD UREA NITROGEN 16 mg/dL (7-26); BUN/CREATININE RATIO 18 (6-25); CALCIUM 7.8 mg/dL (8.4-10.2); CARBON DIOXIDE 26 mmol/L (22-29); CHLORIDE 99 mmol/L (98-107); CREATININE, SERUM 0.87 mg/dL (0.57-1.11); EST GLOMERULAR FILTRATION RATE > 60 ML/MIN (60-); GLUCOSE 103 mg/dL (74-118); POTASSIUM 4.2 mmol/L (3.5-5.1); SODIUM 133 mmol/L (136-145)
[2020-07-10 07:55] VITALS: BP 114/80
[2020-07-10] MEDS: SODIUM CHLORIDE 1 GM TAB PO SCH (08:18)
[2020-07-10] MEDS: DOCUSATE SODIUM 100 MG CAP PO SCH (08:18)
[2020-07-10] MEDS: PANTOPRAZOLE SOD 40 MG TABEC PO SCH (08:18)
[2020-07-10 09:00] VITALS: BP 114/80
== END 2020-07-10 09:00 | disposition home or self-care (01) | DRG 436 ==
LOC: ER 12:28 → ERHOLD 14:35 → MED/SURG3 18:19
PROVIDERS: ADMIT Family Medicine; ATTEND Family Medicine
PROC: 0W9N3ZX Drainage of Female Perineum, Percutaneous Approach, Diagnostic (ICD-10-PCS; principal; 2020-07-06)
DX: C22.1 Intrahepatic bile duct carcinoma (principal); E87.1 Hypo-osmolality and hyponatremia; N17.9 Acute kidney failure, unspecified; C78.6 Secondary malignant neoplasm of retroperitoneum and peritoneum; E87.6 Hypokalemia; E87.8 Other disorders of electrolyte and fluid balance, not elsewhere classified; G47.00 Insomnia, unspecified; Z20.822 Contact with and (suspected) exposure to COVID-19; Z85.3 Personal history of malignant neoplasm of breast; I10 Essential (primary) hypertension; E03.9 Hypothyroidism, unspecified; G62.9 Polyneuropathy, unspecified
CPT/HCPCS: 36415; 49083; 70450; 71045; 74470; 80048; 80053; 80307; 80320; 80329; 81001; 82140; 84132; 84484; 85025; 93005; 96361; 99284; C1729; J2270; J2405; J2765; J3480; J7030; U0002

== ENCOUNTER → 2020-07-06 | Outpatient (CLI) | payer MEDICARE | LOC: US 11:30 | PROVIDERS: ATTEND Internal Medicine | DX: C23 Malignant neoplasm of gallbladder (principal); C79.51 Secondary malignant neoplasm of bone; C78.6 Secondary malignant neoplasm of retroperitoneum and peritoneum; R19.09 Other intra-abdominal and pelvic swelling, mass and lump; L27.1 Localized skin eruption due to drugs and medicaments taken internally; E07.9 Disorder of thyroid, unspecified; K21.00 Gastro-esophageal reflux disease with esophagitis, without bleeding; K44.9 Diaphragmatic hernia without obstruction or gangrene | CPT/HCPCS: 76705 ==